=== PATIENT | female | born 1950 | race Asian ===

== ENCOUNTER 2021-06-08 16:52 | Emergency (ER) | payer BC, MEDICAID ==
[~2021-06-08] VITALS: Ht 157.5 cm; Wt 45.0 kg
[~2021-06-08 16:52] MED LIST: FURO-150 PO
[2021-06-08 18:22] LABS: BASOPHILS % (AUTO) 0.5 % (0-1); EOSINOPHILS # (AUTO) 0.2 X10'3 (0-0.9); EOSINOPHILS % (AUTO) 2.8 % (0-6); HEMATOCRIT 43.2 % (35.0-45.0); HEMOGLOBIN 14.6 g/dl (12.0-16.0); LYMPHOCYTES # (AUTO) 1.3 X10'3 (1.1-4.8); LYMPHOCYTES % (AUTO) 18.5 % (21-51); MEAN CORPUSCULAR HEMOGLOBIN 28.9 PG (27.0-31.0); MEAN CORPUSCULAR HGB CONC 33.7 g/dL (33.0-36.5); MEAN CORPUSCULAR VOLUME 85.6 FL (78-98); MEAN PLATELET VOLUME 8.1 FL (7.4-10.4); MONOCYTES # (AUTO) 0.6 X10'3 (0-0.9); MONOCYTES % (AUTO) 7.7 % (2-12); NEUTROPHILS # (AUTO) 5.1 X10'3 (1.8-7.7); NEUTROPHILS % (AUTO) 70.5 % (42-75); PLATELET COUNT 194 X10'3 (140-440); RED BLOOD COUNT 5.05 X10'6 (4.20-5.60); RED CELL DISTRIBUTION WIDTH 14.2 % (11.5-14.5); WHITE BLOOD COUNT 7.2 X10'3 (4.5-11.0)
[2021-06-08 18:40] LABS: ALANINE AMINOTRANSFERASE 17 U/L (12-78); ALBUMIN 3.6 G/DL (3.4-5.0); ALKALINE PHOSPHATASE 65 IU/L (46-116); ANION GAP 5 (8-16); ASPARTATE AMINO TRANSFERASE 13 U/L (10-37); BILIRUBIN,TOTAL 0.4 MG/DL (0.1-1.0); BLOOD UREA NITROGEN 14 MG/DL (7-18); BUN/CREATININE RATIO 15.6 (6.6-38.0); CALCIUM 8.8 MG/DL (8.5-10.1); CHLORIDE 109 MMOL/L (99-107); ETHANOL < 0.010 GM/DL (0.0-0.010); GLUCOSE 173 MG/DL (70-104); POTASSIUM 3.7 MMOL/L (3.5-5.1); SODIUM 144 MMOL/L (135-145); TOTAL CARBON DIOXIDE 29.8 MMOL/L (24-32); TOTAL PROTEIN 7.2 G/DL (6.4-8.2); eGFR 62 ML/MIN
--- NOTE | 2021-06-08 20:30 | NUR ---
I agree with the assessment and mental health charting assessments performed by Flakita VÁZQUEZ.
[2021-06-08 20:39] LABS: URINE AMPHETAMINE SCREEN NEGATIVE (Neg); URINE BARBITUATE SCREEN NEGATIVE (Neg); URINE BENZODIAZEPINES SCREEN NEGATIVE (Neg); URINE CANNABINOID SCREEN NEGATIVE (Neg); URINE COCAINE SCREEN NEGATIVE (Neg); URINE METHADONE SCREEN NEGATIVE (Neg); URINE OPIATE SCREEN NEGATIVE (Neg); URINE PHENCYCLIDINE SCREEN NEGATIVE (Neg)
[2021-06-08] MEDS ORDERED: GABA300C PO (21:15)
[2021-06-08] MEDS ORDERED: METF-436 PO ×2 (21:15)
[2021-06-08] MEDS ORDERED: SIMV-42 PO (21:29)
[2021-06-08] MEDS ORDERED: LOSA25TA41 PO (21:29)
--- NOTE | 2021-06-08 21:50 | NUR ---
1799 PACKET FAXED @21:52 TO [facility]
--- NOTE | 2021-06-08 23:39 | NUR ---
PT AMBULATED TO RESTROOM, RETURNED TO ROOM
--- NOTE | 2021-06-09 06:30 | NUR ---
FIRST CONTACT WITH PT, FOUND SITTING AT EDGE OF BED READING A BOOK. PT EXPLAINED THAT SHE DOES NOT WANT TO RETURN TO HER HOME. STATES HER "ROOMMATE MAKES HER DO ALL THE COOKING AND CLEANING" STATES SHE IS "TOO OLD TO BE TAKING CARE OF HIM" SHE DOES NOT HAVE ANTOHER PLACE TO GO IN TOWN. WILL PLACE SOCIAL SERIVES CONSULT. RR EVEN AND UNLABORED, NO DISTRESS.
[2021-06-09] MEDS: atorvastatin 10mg tablet PO SCH (08:40)
[2021-06-09] MEDS: metFORMIN 500mg tablet PO SCH ×2 (08:40→20:09)
[2021-06-09] MEDS: gabapentin 300mg capsule PO SCH ×2 (08:40→20:09)
[2021-06-09] MEDS: losartan 25mg tablet PO SCH (08:41)
--- NOTE | 2021-06-09 12:36 | NUR ---
[facility] is at bedside evaluating the patient.
--- NOTE | 2021-06-09 13:00 | NUR ---
[facility] will not place pt on a hold d/t severe cognitive decline. informed dr. delgadillo. pt will stay in ER and await placement.
--- NOTE | 2021-06-09 14:30 | NUR ---
pt is tearful in bed, kleenex provided. pt is thanking nursing staff for help, stating she had a therapist with her mother. pt informed that she will be staying in the hospital for the time being, verbalized understanding.
--- NOTE | 2021-06-09 18:22 | NUR ---
pt ambulated with steady gait to/from restroom.
--- NOTE | 2021-06-09 19:46 | NUR ---
The patient was moved to bed 21 in the main ER and she was very cooperative with the move. She is ambulating to and from the bathroom using a front wheel walker and she was able to do that independently. She was very pleasant during the one to one evening assessment. She ate 100% of her dinner. She was able to state why she is here and the circumstances surrounding coming to the ER. She was oriented to month and year. She denies physical complaints. She denied feeling depressed or suicidal in any way. She report that she felt anxious about being here.
--- NOTE | 2021-06-09 21:00 | NUR ---
The patient appear to be sleeping
--- NOTE | 2021-06-09 23:06 | NUR ---
The patient appears to be sleeping
--- NOTE | 2021-06-10 01:00 | NUR ---
The patient appears to be sleeping
--- NOTE | 2021-06-10 01:58 | NUR ---
The patient appears to be sleeping
--- NOTE | 2021-06-10 03:47 | NUR ---
The patient appears to be sleeping
--- NOTE | 2021-06-10 05:19 | NUR ---
The patient appeared to have slept well throughout the night
[2021-06-10] MEDS: gabapentin 300mg capsule PO SCH ×2 (08:32→20:27)
[2021-06-10] MEDS: atorvastatin 10mg tablet PO SCH (08:32)
[2021-06-10] MEDS: metFORMIN 500mg tablet PO SCH ×2 (08:33→20:27)
[2021-06-10] MEDS: losartan 25mg tablet PO SCH (08:34)
--- NOTE | 2021-06-10 11:24 | NUR ---
LOUISE RODRIGUEZ [phone] BOYFRIEND. WANTS TO COME PICK HER UP. TOLD LOUISE I WOULD FIND OUT AND GET BACK TO HIM.
--- NOTE | 2021-06-10 14:51 | NUR ---
LOUISE TAVAREZ BOYFRIEND ALSO ROOMMATE. PT DOES NOT WANT TO GO BACK THERE AND LIVE WITH HIM. BLANKET FOLDER WILL FIND PLACEMENT FOR PT.
--- NOTE | 2021-06-10 14:56 | NUR ---
SENT MESSAGE TO CONCESSIONIST FOR CONSULT.
--- NOTE | 2021-06-10 15:00 | NUR ---
PT AT NURSES STATION, TEARY EYED, CRYING. STATES, " I DONT WANT TO GO BACK HOME WITH HIM." WE REASSURE HER THAT IT WONT HAPPEN. HOGSHEAD HAND WILL PROBABLY COME TALK TO HER TOMORROW.
--- NOTE | 2021-06-10 19:05 | NUR ---
One to one with the patient. She was very pleasant when approached. She stated that she has been feeling very anxious. She stated that she also felt upset about a phone call she had with her roommates sister. She denies suicidal or thoughts to harm to others. There is no psychotic symptoms. She is oriented to day and date. She reports her appetite is good and she ate 100% of her dinner. She takes care of her ADLs independently.
--- NOTE | 2021-06-10 20:40 | NUR ---
The patient appears to be sleeping. She woke up briefly to take her HS medications but is now back asleep
--- NOTE | 2021-06-10 22:31 | NUR ---
The patient appears to be sleeping
--- NOTE | 2021-06-11 00:49 | NUR ---
The patient appears to be sleeping
--- NOTE | 2021-06-11 01:53 | NUR ---
The patient is up to use the bathroom. Ambulating with front wheel walker
--- NOTE | 2021-06-11 03:47 | NUR ---
The patient is awake and sitting quietly on the side of her bed
--- NOTE | 2021-06-11 04:56 | NUR ---
The patient is sitting on the side of her bed quietly
--- NOTE | 2021-06-11 05:54 | NUR ---
Accucheck was 99
--- NOTE | 2021-06-11 07:00 | NUR ---
Pt lying in mid nuñez's position, noted rise and fall of chest. Repirations even and unlabored.
[2021-06-11] MEDS: atorvastatin 10mg tablet PO SCH (08:04)
[2021-06-11] MEDS: gabapentin 300mg capsule PO SCH (08:04)
[2021-06-11] MEDS: losartan 25mg tablet PO SCH (08:04)
[2021-06-11] MEDS: metFORMIN 500mg tablet PO SCH (08:04)
--- NOTE | 2021-06-11 08:52 | NUR ---
PT WAS UP TO THE BATHROOM WITH HER HYGIENE ITEMS. PRESENTS A LITTLE CONFUSED, WASN'T AT FIRST ABLE TO RECALL WHERE SHE WAS. PT WAS ASSISTED BACK TO HER BED. PT DENIES PSYCHOTIC SYMPTOMS. PT ATE 100% OF HER BREAKFAST.
--- NOTE | 2021-06-11 09:43 | NUR ---
SS at bedside, conversation appropriate.
--- NOTE | 2021-06-11 10:30 | NUR ---
Spoke with Mark (pt's boyfriend). He will be able to pick pt up around 1200.
--- NOTE | 2021-06-11 11:03 | NUR ---
Pt sitting on side of bed waiting for her discharge.
--- NOTE | 2021-06-11 13:08 | NUR ---
DISCHARGE NOTE: Patient was discharged from unit at 1304. Pt was picked up by her boyfriend Mark. Pt left with all personal belongings. Pt has a hospital follow up at [facility] 07/05/21 @ 1410 with Gelacio Perales NP. [facility] services will contact patient regarding mental health follow up. Pt verbalized understanding.
[2021-06-11 13:09] VITALS: BP 133/78
== END 2021-06-11 13:03 | disposition home or self-care (01) ==
LOC: ER 16:53
DX: R45.851 Suicidal ideations (principal); Z20.822 Contact with and (suspected) exposure to COVID-19; F32.A Depression, unspecified; E78.00 Pure hypercholesterolemia, unspecified; I10 Essential (primary) hypertension; E11.9 Type 2 diabetes mellitus without complications; Z98.890 Other specified postprocedural states; Z88.8 Allergy status to other drugs, medicaments and biological substances; Z79.899 Other long term (current) drug therapy
CPT/HCPCS: 36415; 80053; 80305; 80320; 82948; 85025; 87635; 99285; C9803

== ENCOUNTER 2021-08-11 08:31 | Emergency (ER) | payer BC, MEDICAID ==
[~2021-08-11] VITALS: Ht 157.5 cm; Wt 47.3 kg
[~2021-08-11 08:31] MED LIST changes: +ATOR10TA PO; +BUSP5TAB26 PO; +DULO30CA52 PO; -FURO-150 PO; +GABA300C PO; +LOSA25TA41 PO; +METF-1203 PO; +TRAZ-251 PO
[2021-08-11 09:06] VITALS: BP 135/72
== END 2021-08-11 12:54 | disposition home or self-care (01) ==
LOC: ER 08:31
DX: R53.1 Weakness (principal); E78.00 Pure hypercholesterolemia, unspecified; I10 Essential (primary) hypertension; E11.9 Type 2 diabetes mellitus without complications; F41.9 Anxiety disorder, unspecified; F32.A Depression, unspecified; Z88.8 Allergy status to other drugs, medicaments and biological substances; Z79.899 Other long term (current) drug therapy; W18.30XA Fall on same level, unspecified, initial encounter; Y93.89 Activity, other specified; Y92.89 Other specified places as the place of occurrence of the external cause; Y99.8 Other external cause status
CPT/HCPCS: 93005; 99283

== ENCOUNTER 2021-09-29 10:01 | Emergency (ER) | payer BC, MEDICAID ==
[~2021-09-29] VITALS: Ht 157.5 cm; Wt 63.6 kg
[2021-09-29 10:38] VITALS: BP 140/80
== END 2021-09-29 14:59 | disposition left against medical advice (07) ==
LOC: ER 10:02
DX: K92.1 Melena (principal); Z53.21 Procedure and treatment not carried out due to patient leaving prior to being seen by health care provider

== ENCOUNTER 2021-10-18 14:28 | Emergency (ER) | payer BC, MEDICAID ==
[~2021-10-18] VITALS: Ht 157.5 cm; Wt 63.0 kg
[2021-10-18 14:59] VITALS: BP 175/85
== END 2021-10-18 16:56 | disposition home or self-care (01) ==
LOC: ER 14:29
DX: Z13.89 Encounter for screening for other disorder (principal); I10 Essential (primary) hypertension; E78.00 Pure hypercholesterolemia, unspecified; E11.9 Type 2 diabetes mellitus without complications; F41.9 Anxiety disorder, unspecified; F32.9 Major depressive disorder, single episode, unspecified; Z88.8 Allergy status to other drugs, medicaments and biological substances; Z79.899 Other long term (current) drug therapy
CPT/HCPCS: 99283

== ENCOUNTER 2021-11-28 17:40 | Inpatient (IN) | payer BC, MEDICAID ==
[~2021-11-28] VITALS: Ht 157.5 cm; Wt 55.9 kg
[2021-11-28 18:51] LABS: BASOPHILS # (AUTO) 0.1 X10'3 (0-0.2); BASOPHILS % (AUTO) 1.7 % (0-1); EOSINOPHILS # (AUTO) 0.2 X10'3 (0-0.9); HEMATOCRIT 41.6 % (35.0-45.0); HEMOGLOBIN 13.5 g/dl (12.0-16.0); LYMPHOCYTES # (AUTO) 1.6 X10'3 (1.1-4.8); LYMPHOCYTES % (AUTO) 22.9 % (21-51); MEAN CORPUSCULAR HEMOGLOBIN 28.6 PG (27.0-31.0); MEAN CORPUSCULAR HGB CONC 32.4 g/dL (33.0-36.5); MEAN CORPUSCULAR VOLUME 88.3 FL (78-98); MEAN PLATELET VOLUME 7.8 FL (7.4-10.4); MONOCYTES # (AUTO) 0.7 X10'3 (0-0.9); MONOCYTES % (AUTO) 9.6 % (2-12); NEUTROPHILS # (AUTO) 4.4 X10'3 (1.8-7.7); NEUTROPHILS % (AUTO) 62.8 % (42-75); PLATELET COUNT 224 X10'3 (140-440); RED BLOOD COUNT 4.71 X10'6 (4.20-5.60); RED CELL DISTRIBUTION WIDTH 14.3 % (11.5-14.5)
[2021-11-28 19:18] LABS: ALANINE AMINOTRANSFERASE 31 U/L (12-78); ALBUMIN 3.6 G/DL (3.4-5.0); ALBUMIN/GLOBULIN RATIO 1.1 (1.1-1.5); ALKALINE PHOSPHATASE 70 IU/L (46-116); ANION GAP 8 (8-16); ASPARTATE AMINO TRANSFERASE 26 U/L (10-37); BILIRUBIN,TOTAL 0.3 MG/DL (0.1-1.0); BLOOD UREA NITROGEN 16 MG/DL (7-18); BUN/CREATININE RATIO 22.5 (6.6-38.0); CHLORIDE 105 MMOL/L (99-107); CREATININE 0.71 MG/DL (0.40-0.90); GLUCOSE 87 MG/DL (70-104); SODIUM 142 MMOL/L (135-145); TOTAL CARBON DIOXIDE 28.8 MMOL/L (24-32); TOTAL PROTEIN 6.9 G/DL (6.4-8.2); eGFR 82 ML/MIN
[2021-11-28 19:22] LABS: ETHANOL < 0.010 GM/DL (0.0-0.010)
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
[2021-11-28] MEDS ORDERED: PALI117D IM (21:24)
[2021-11-28] MEDS ORDERED: TRIH2TAB3 PO (21:24)
[2021-11-28] MEDS ORDERED: BUSP10TA11 PO (21:24)
[2021-11-28] MEDS ORDERED: TRAZ-256 PO (21:24)
[2021-11-28] MEDS ORDERED: invega sustenna IM (21:24)
[2021-11-28] MEDS ORDERED: DULO-31 PO (21:24)
[2021-11-28] MEDS ORDERED: METF-438 PO (21:24)
[2021-11-28] MEDS ORDERED: PALI6TAB PO (21:24)
[2021-11-28] MEDS ORDERED: LOSA25TA96 PO (21:29)
[2021-11-28] MEDS ORDERED: BREX2TAB PO (21:29)
[2021-11-28 21:32] LABS: CLARITY,URINE CLEAR (Clear); COLOR,URINE YELLOW (Yellow); GLUCOSE, URINE NEGATIVE (Neg); KETONES,URINE NEGATIVE (Neg); LEUKOCYTE ESTERASE ,URINE NEGATIVE (Neg); NITRITES, URINE NEGATIVE (Neg); OCCULT BLOOD,URINE NEGATIVE (Neg); PROTEIN,URINE NEGATIVE (Neg); UROBILINOGEN,URINE 0.2 E.U/dL (0.2-1.0)
[2021-11-28 21:33] LABS: UA COLLECTION TYPE FOLEY CATH
--- NOTE | 2021-11-28 21:35 | NUR ---
The patient is currently resting comfortably on her bed. She is confused and a poor historian but has been very cooperative with staff and CT scan.
[2021-11-28 21:40] LABS: URINE AMPHETAMINE SCREEN NEGATIVE (Neg); URINE BARBITUATE SCREEN NEGATIVE (Neg); URINE BENZODIAZEPINES SCREEN NEGATIVE (Neg); URINE CANNABINOID SCREEN NEGATIVE (Neg); URINE COCAINE SCREEN NEGATIVE (Neg); URINE METHADONE SCREEN NEGATIVE (Neg); URINE OPIATE SCREEN NEGATIVE (Neg); URINE PHENCYCLIDINE SCREEN NEGATIVE (Neg)
--- NOTE | 2021-11-28 22:20 | NUR ---
PACKET SENT TO [facility]
--- NOTE | 2021-11-28 23:36 | NUR ---
The patient appears to be sleeping
--- NOTE | 2021-11-29 01:59 | NUR ---
The patient up to use the bedside commode and was incontinent of loose stool.
--- NOTE | 2021-11-29 02:59 | NUR ---
The patient appears to be sleeping
--- NOTE | 2021-11-29 05:00 | NUR ---
The patient is awake and tearful. Stated she has been feeling depressed. Presents as somewhat confused about what was going on with her medications or where they were at. She was assured that her medications will be reordered for while she is here in the hospital.
--- NOTE | 2021-11-29 06:01 | NUR ---
The patient has had two liquid stools and Dr. Gan was made aware.
[2021-11-29] MEDS ORDERED: loperamide 2mg capsule PO PRN (06:05)
--- NOTE | 2021-11-29 07:00 | NUR ---
Received Pt in bed sleeping w/o distress at this time.
--- NOTE | 2021-11-29 09:05 | NUR ---
Pt woke and cooperative and pleasant with staff. Pt ate 100% of breakfast and used bedside comode with transfer assist.
[2021-11-29] MEDS: busPIRone 5mg tablet PO SCH ×2 (09:15→20:08)
[2021-11-29] MEDS: duloxetine 30mg CAPSULE.DR PO SCH (09:15)
[2021-11-29] MEDS: trihexyphenidyl 2mg tablet PO SCH ×2 (09:15→20:17)
[2021-11-29] MEDS: losartan 25mg tablet PO SCH (09:16)
--- NOTE | 2021-11-29 10:30 | NUR ---
Pt took AM meds w/o issue and is in bed awake and intermitently closing her eyes.
--- NOTE | 2021-11-29 11:35 | NUR ---
Giving break to primary RN at this time.
--- NOTE | 2021-11-29 12:45 | NUR ---
Pt up to comode again with pivot assist. Pt had diarhea and urinated. Pt cleaned and new aubrey placed. Pt remains grateful and pleasant. Spoke with [facility] charge who inquired about incontinence, and mobility. Pt has not been incontinent on this shift. Pt ate lunch well.
--- NOTE | 2021-11-29 14:30 | NUR ---
Pt in bed resting quietly with no complaints or requests at this time. Pt sat on edge of bed for a while.
--- NOTE | 2021-11-29 16:30 | NUR ---
Pt sat on edge af bed and was able to stand and sit on comode by herself to urinate and returned to bed by self.
--- NOTE | 2021-11-29 18:14 | NUR ---
Pt sitting at edge of bed and returned phone to staff. Pt smiled and remains pleasant.
--- NOTE | 2021-11-29 19:00 | NUR ---
One to one with the patient who is pleasant but slightly confused. She keeps thinking that she will have to walk home and she was assured that she will be staying with us for tonight. She did say that she is periodically having visual hallucinations. She also reports that she continues to be depressed and have suicidal thoughts. She is getting up to the bedside commode independently.
[2021-11-29] MEDS: traZODone 50mg tablet PO SCH (20:08)
[2021-11-29] MEDS: metFORMIN 500mg tablet PO SCH (20:08)
--- NOTE | 2021-11-29 20:47 | NUR ---
The patient is resting on her bed. She was reminded of plan of care.
[2021-11-29] MEDS ORDERED: paliperidone 1.5mg ER tablet PO SCH (21:00)
--- NOTE | 2021-11-29 23:45 | NUR ---
The patient appears to be sleeping
--- NOTE | 2021-11-30 01:07 | NUR ---
The patient appears to be sleeping
--- NOTE | 2021-11-30 02:20 | NUR ---
The patient up to use the bedside commode but was incontinent and she had taken the bucket out for an unknown reason. She did not know where she was at or why she was here. She asked if she was in [place].
--- NOTE | 2021-11-30 02:48 | NUR ---
The patient appears to be sleeping
--- NOTE | 2021-11-30 03:52 | NUR ---
The patient appears to be sleeping
--- NOTE | 2021-11-30 05:09 | NUR ---
The patient appears to be sleeping at this time
--- NOTE | 2021-11-30 05:56 | NUR ---
pt refused vitals
--- NOTE | 2021-11-30 06:05 | NUR ---
The patient crawling on the floor and when asked why she stated that she was trying to get to the kitchen. She had no idea that she was in the hospital and she was re-oriented to time and place and was assisted back to bed. She was able to ambulate making very short steps with two staff assisting her.
--- NOTE | 2021-11-30 06:45 | NUR ---
Patient recieved awake sitting at the edge of the bed. No s/sx acute distress.
[2021-11-30] MEDS: trihexyphenidyl 2mg tablet PO SCH ×2 (08:31→19:38)
[2021-11-30] MEDS: duloxetine 30mg CAPSULE.DR PO SCH (08:31)
[2021-11-30] MEDS: busPIRone 5mg tablet PO SCH ×2 (08:31→19:38)
[2021-11-30] MEDS: losartan 25mg tablet PO SCH (08:32)
--- NOTE | 2021-11-30 10:24 | NUR ---
Patient resting quietly in bed. Appears to be sleeping off and on.
--- NOTE | 2021-11-30 13:47 | NUR ---
Pt stated she likes to do crossword puzzles, provided pt with a crossword puzzle.
--- NOTE | 2021-11-30 14:32 | NUR ---
Patient is sitting in bed working on a crossword puzzle. No s/sx acute distress.
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
[2021-11-30] MEDS: traZODone 50mg tablet PO SCH (19:37)
[2021-11-30] MEDS: metFORMIN 500mg tablet PO SCH (19:37)
[2021-11-30] MEDS: PALIPERIDONE 3 MG TAB.ER.24 PO SCH (19:38)
--- NOTE | 2021-11-30 20:00 | NUR ---
Pt is sitting up in bed eating her dinner. Pt is pleasantly confused, requesting when she will get her medications. Pt is questioning each pill but takes them without any issue. Pt up to bathroom with minimal assistance.
--- NOTE | 2021-11-30 23:05 | NUR ---
Pt up to the restroom X2, ambulates well with FWW. Pt back to bed and resting comfortably.
--- NOTE | 2021-12-01 02:34 | NUR ---
Pt appears to be sleeping.
--- NOTE | 2021-12-01 05:07 | NUR ---
Pt appears to be sleeping.
--- NOTE | 2021-12-01 06:30 | NUR ---
Pt is lying in bed on her back, she appears to be sleeping.
[2021-12-01] MEDS: busPIRone 5mg tablet PO SCH ×2 (08:14→20:44)
[2021-12-01] MEDS: duloxetine 30mg CAPSULE.DR PO SCH (08:15)
[2021-12-01] MEDS: trihexyphenidyl 2mg tablet PO SCH ×2 (08:15→20:00)
[2021-12-01] MEDS: losartan 25mg tablet PO SCH (08:15)
--- NOTE | 2021-12-01 08:30 | NUR ---
Pt changed from hospital gown to green scrubs. Pt wears pull-up briefs. Pt has been ambulating to the bathroom using FWW without staff assistance.
--- NOTE | 2021-12-01 10:13 | NUR ---
Pt requested to use the phone and called
--- NOTE | 2021-12-01 10:45 | NUR ---
Pt ambulated to the bathroom. Pt is able to manage her own pull-up briefs.
--- NOTE | 2021-12-01 12:00 | NUR ---
Pt is watching a movie.
--- NOTE | 2021-12-01 13:30 | NUR ---
Alison gas charger nurse from [facility] came down to interview the patient, they are considering placement upstairs.
--- NOTE | 2021-12-01 14:33 | NUR ---
Pt has been accepted at [facility].
--- NOTE | 2021-12-01 16:31 | NUR ---
Pt was transferred upstairs to [facility], she was taken up in a w/c accompanied by PCT and security.
--- NOTE | 2021-12-01 16:35 | NUR ---
Admit Note: Pt brought to ED via EMS for GD. Pt was not caring for self or eating per a roommate. Pt's belongings inventoried and put in locker. Pt showered then ate dinner. Addendum: 12/01/21 at 1826 by Tana Aponte RN Pt. scores as a high risk on the [place] Suicide Risk Assessment, however she is able to contract for safety on the unit. This was endorsed to US[facility] Zamora and Girish 15min safety checks were ordered.
[2021-12-01 16:40] VITALS: BP 146/84
[2021-12-01] MEDS ORDERED: loperamide 2mg capsule PO PRN (17:30)
[2021-12-01] MEDS ORDERED: mag hydrox/Alum hydrox/simeth 30ml oral suspension PO PRN (17:30)
[2021-12-01] MEDS ORDERED: acetaminophen 325mg tablet PO PRN ×2 (17:30)
[2021-12-01] MEDS ORDERED: magnesium hydroxide 30ml (MOM) UD suspension PO PRN (17:30)
[2021-12-01 19:00] VITALS: BP 109/55
[2021-12-01 19:51] VITALS: BP 109/55
[2021-12-01] MEDS: traZODone 50mg tablet PO SCH (20:44)
[2021-12-01] MEDS: PALIPERIDONE 3 MG TAB.ER.24 PO SCH (20:44)
[2021-12-01] MEDS: metFORMIN 500mg tablet PO SCH (20:45)
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
[2021-12-02 07:37] LABS: CHOL/HDL RATIO 2.8 (0.00-4.99); CHOLESTEROL 191 MG/DL (0-200); HDL CHOLESTEROL 69 MG/DL (35-60); LDL CHOLESTEROL 98 MG/DL (50-100); TRIGLYCERIDES 128 MG/DL (20-135)
[2021-12-02 08:00] VITALS: BP 122/63
[2021-12-02] MEDS: trihexyphenidyl 2mg tablet PO SCH ×2 (08:48→20:17)
[2021-12-02] MEDS: busPIRone 5mg tablet PO SCH ×2 (08:49→20:17)
[2021-12-02] MEDS: duloxetine 30mg CAPSULE.DR PO SCH (08:49)
[2021-12-02] MEDS: losartan 25mg tablet PO SCH (08:50)
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
[2021-12-02 19:30] VITALS: BP 130/56
[2021-12-02] MEDS: metFORMIN 500mg tablet PO SCH (20:17)
[2021-12-02] MEDS: PALIPERIDONE 3 MG TAB.ER.24 PO SCH (20:17)
[2021-12-02] MEDS: traZODone 50mg tablet PO SCH (20:17)
--- NOTE | 2021-12-03 05:07 | NUR ---
Nursing Progress Note Problem: Pt brought to ED via EMS for GD. Pt was not caring for self or eating per a roommate. Pt's belongings inventoried and put in locker. Interventions: Maintained a safe and supportive environment, ensured contract for safety, provided clear and simple instructions, maintained fall precautions, monitored behavior and provided redirection as needed, and maintained Q 15min safety checks. Response: Patient is pleasant and cooperative with care; compliant with medication. She denies SI, HI, A/VH; no apparent delusions expressed. Continues to appear depressed. She was social with peers and participated in HS snack in the community room. Patient was assisted to the restroom prior to bed; she expressed that she struggles with urgency. While in the restroom, patient reported stinging and bleeding when she wipes; some vaginal bleeding was noted. Brief was put on prior to bed; she is observed sleeping and continues to wake up frequently. Plan: Pt. requires a safe and supportive environment, medication titration until effective dose, needs to be monitored for crisis stabilization, and a viable plan for food, water & residential for discharge.
[2021-12-03 08:00] VITALS: BP 124/74
[2021-12-03] MEDS ORDERED: INVEGA SUSTENNA 117 MG IM SCH (08:00)
[2021-12-03] MEDS: busPIRone 5mg tablet PO SCH ×2 (08:17→21:11)
[2021-12-03] MEDS: losartan 25mg tablet PO SCH (08:18)
[2021-12-03] MEDS: trihexyphenidyl 2mg tablet PO SCH ×2 (08:18→21:11)
[2021-12-03] MEDS: duloxetine 30mg CAPSULE.DR PO SCH (08:18)
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
--- NOTE | 2021-12-03 15:52 | NUR ---
Therapeutic Group, Note Client attended 2 p.m. therapeutic group. Group method: group talk regarding healthy communication based on Cydneyan method -- no criticism, contempt, defensiveness, stonewalling, but stressing need to keep self and others safe (for example, it's okay not to talk or engage with someone when it's not safe). Acknowledged the uniqueness of this environment, and processing at length may or may not be necessary (chose communication based on setting, culture, need, relationship, etc.) Client stayed for the duration of group time, and interacted well and appropriately with peers.
[2021-12-03 20:21] VITALS: BP 113/59
[2021-12-03] MEDS: metFORMIN 500mg tablet PO SCH (21:10)
[2021-12-03] MEDS: PALIPERIDONE 3 MG TAB.ER.24 PO SCH (21:11)
[2021-12-03] MEDS: traZODone 50mg tablet PO SCH (21:11)
--- NOTE | 2021-12-04 02:08 | NUR ---
Nursing Progress Note: Problem : Pt brought to ED via EMS for GD. Pt was not caring for self or eating per a roommate. Pt's belongings inventoried and put in locker. Interventions : Maintained a safe and supportive environment, ensured contract for safety, provided clear and simple instructions, provided active listening and positive encouragement, encouraged participation on the unit, maintained fall precautions, and maintained Q 15min safety checks. Response : Pt pleasant and cooperative. Her conversation can be repetitive at times. She perseverated on her roommate and if he was going to allow her to come home. Pt chastity and laughs easily. Pt concerned about being incontinent supplied with depends and encouraged to ask for assistance if needed. She socialized with other pts in the group room before going to bed. Plan : Pt. continues to require interruption of current crisis, medication adjustments, and a safe and supportive environment.
[2021-12-04 08:00] VITALS: BP 120/63
[2021-12-04] MEDS ORDERED: paliperidone palmitate inj 234 MG/1.5 ML SYRINGE IM ONE (08:00)
[2021-12-04] MEDS: duloxetine 30mg CAPSULE.DR PO SCH (08:18)
[2021-12-04] MEDS: trihexyphenidyl 2mg tablet PO SCH ×2 (08:18→19:56)
[2021-12-04] MEDS: aspirin 81mg tab.chew PO SCH (08:18)
[2021-12-04] MEDS: losartan 25mg tablet PO SCH (08:19)
[2021-12-04] MEDS: lisinopril 10 MG tablet PO SCH (08:19)
[2021-12-04] MEDS: busPIRone 5mg tablet PO SCH ×2 (08:20→19:56)
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
[2021-12-04 19:30] VITALS: BP 110/57
[2021-12-04] MEDS: PALIPERIDONE 3 MG TAB.ER.24 PO SCH (19:55)
[2021-12-04] MEDS: metFORMIN 500mg tablet PO SCH (19:56)
[2021-12-04] MEDS: traZODone 50mg tablet PO SCH (19:56)
--- NOTE | 2021-12-05 00:05 | NUR ---
Nursing Progress Note: Problem : The patient was seen in her home by staff from [facility] and a 5150 was written for grave disability. The patient was found sitting soiled in a chair and unable to get up or walk. The house was almost to the point of being uninhabitable. There was trash and feces on the floor of the home and she could not tell mental health staff if she had been taking her medications. Interventions: One to one with the patient to assess orientation. She was assessed for thought disorder and what her plans were if she were to leave the hospital. She was also assessed for self harm risk and severity of depressive symptoms. Response: The patient was seen in the patient dining room where she was observed sleeping in her chair. She was very pleasant and cooperative with the evening assessment. She was able to state the date and place but had more difficulty stating why she was here. She often would give a reply then immediately began talking about totally unrelated topics. She denies that she has thoughts to harm herself or others. When asked if she felt depressed she stated no but then immediately added, "A little bit" Plan: Continue plan of care. Discharge planning to include a safe discharge plan.
--- NOTE | 2021-12-05 07:37 | NUR ---
Initial: Pt admitted w/ schizophrenia per EMR. Currently on Carb control diet w/ mostly 100% intake of meals meeting est needs. LBM 12/04. No nutrition intervention implemented at this time, will continue to monitor. Recs; 1. Continue Carb control diet as tolerated 2. Bowel care PRN 3. Weekly wts Addendum: 12/05/21 at [address] Amended: Links added.
[2021-12-05 08:00] VITALS: BP 124/67
[2021-12-05] MEDS: aspirin 81mg tab.chew PO SCH (08:06)
[2021-12-05] MEDS: lisinopril 10 MG tablet PO SCH (08:06)
[2021-12-05] MEDS: trihexyphenidyl 2mg tablet PO SCH ×2 (08:06→20:56)
[2021-12-05] MEDS: duloxetine 30mg CAPSULE.DR PO SCH (08:06)
[2021-12-05] MEDS: losartan 25mg tablet PO SCH (08:07)
[2021-12-05] MEDS: busPIRone 5mg tablet PO SCH ×2 (08:07→20:56)
--- NOTE | 2021-12-05 16:25 | NUR ---
Nursing Progress Note: Marcelle Problem: Pt brought to ED via EMS for GD currently has [address] Interventions: Maintained a safe and supportive environment, ensured contract for safety, provided clear and simple instructions, provided active listening and positive encouragement, encouraged participation on the unit, maintained fall precautions, and maintained Q 15min safety checks. Response: Received patient sleeping and woke to attend breakfast. Pt. took her medications without hesitancy. She denies SI, HI and A/VH her DC plan remains to go to a board and care Pt. is disheveled, with poor hygiene, and wearing a stained dress. Shew was encouraged to take a shower, but reports I have eczema and showers bother my skin, I took a bed bath Pt. observed walking around the unit using her 4WW, and socializing with cohorts. Pt. ate all her meals in the dining room and participated in snacks. She is pleasant during interactions, but presents as confused as to why she is here. Plan: Pt. continues interruption of current crisis, medication adjustments, and a safe and supportive environment.
[2021-12-05 19:38] VITALS: BP 93/51
[2021-12-05] MEDS: metFORMIN 500mg tablet PO SCH (20:56)
[2021-12-05] MEDS: traZODone 50mg tablet PO SCH (20:56)
[2021-12-05] MEDS: PALIPERIDONE 3 MG TAB.ER.24 PO SCH (20:56)
--- NOTE | 2021-12-06 05:01 | NUR ---
Nursing Progress Note Problem: Pt brought to ED via EMS for GD. Pt was not caring for self or eating per a roommate. Pt's belongings inventoried and put in locker. Interventions: Maintained a safe and supportive environment, ensured contract for safety, provided clear and simple instructions, maintained fall precautions, monitored behavior and provided redirection as needed, and maintained Q 15min safety checks. Response: Patient is pleasant and cooperative with care; compliant with medication. She denies SI, HI, A/VH; no apparent delusions expressed. Patient was mostly isolative to her room this shift. Patient was incontinent of urine x1 this shift as she struggles with urgency. She did not participate in HS snack; observed sleeping and does not appear to be having difficulty. Plan: Pt. requires a safe and supportive environment, medication titration until effective dose, needs to be monitored for crisis stabilization, and a viable plan for food, water & nursing home for discharge.
[2021-12-06 07:42] VITALS: BP 113/67
[2021-12-06] MEDS: trihexyphenidyl 2mg tablet PO SCH ×2 (08:07→20:51)
[2021-12-06] MEDS: busPIRone 5mg tablet PO SCH ×2 (08:07→20:51)
[2021-12-06] MEDS: aspirin 81mg tab.chew PO SCH (08:07)
[2021-12-06] MEDS: lisinopril 10 MG tablet PO SCH (08:07)
[2021-12-06] MEDS: duloxetine 30mg CAPSULE.DR PO SCH (08:07)
[2021-12-06] MEDS: losartan 25mg tablet PO SCH (08:08)
[2021-12-06 09:13] LABS: CLARITY,URINE SLIGHTLY CLOUDY (Clear); COLOR,URINE YELLOW (Yellow); GLUCOSE, URINE NEGATIVE (Neg); KETONES,URINE NEGATIVE (Neg); LEUKOCYTE ESTERASE ,URINE SMALL (Neg); NITRITES, URINE NEGATIVE (Neg); OCCULT BLOOD,URINE LARGE (Neg); PH,URINE 5.5 (4.8-8.0); PROTEIN,URINE NEGATIVE (Neg); UROBILINOGEN,URINE 0.2 E.U/dL (0.2-1.0)
[2021-12-06 09:21] LABS: UA COLLECTION TYPE NON-SPECIFIED
[2021-12-06 09:56] LABS: RBC,URINE 50-100 /HPF (0-2); WBC,URINE 50-100 /HPF (0-4)
[2021-12-06 09:57] LABS: BACTERIA,URINE 3+ /HPF (Neg); MUCUS STRANDS NONE SEEN /LPF (Neg); SQUAMOUS EPITHELIAL CELL,UR FEW /LPF (FEW); TRANSITIONAL EPI CELLS,URINE FEW /HPF; WBC CLUMPS,URINE MODERATE /HPF (NEGATIVE)
--- NOTE | 2021-12-06 11:01 | NUR ---
Met with Marcelle to discuss discharge plan. She would like to return home upon discharge. Offered to refer to [facility] per USAMA Morrissey, request, and she declined. JARET Tabares
--- NOTE | 2021-12-06 13:42 | NUR ---
Left message for APS requesting a call back to see if there is any involvement. JARET Tabares
--- NOTE | 2021-12-06 16:41 | NUR ---
Nursing Progress Note: Marcelle Problem: Pt brought to ED via EMS for GD currently has [address] Interventions: Maintained a safe and supportive environment, ensured contract for safety, provided clear and simple instructions, provided active listening and positive encouragement, encouraged participation on the unit, maintained fall precautions, and maintained Q 15min safety checks. Response: Received patient sleeping and woke to attend breakfast. Pt. reported dysuria and a UA was obtained and sent to the lab; results thus far elevated WBC with REAL ESTATE SALES AGENT pending. She continues to have vaginal bleeding but she reports its just a little she took her medications without hesitancy. She denies SI, HI and A/VH her DC plan remains to go to a board and care Pt. took a shower and is wearing street clothes. Pt. observed walking around the unit using her 4WW, and socializing with cohorts. Pt. ate all her meals in the dining room and participated in snacks. She is pleasant during interactions. REAL ESTATE SALES AGENT pending Plan: Pt. continues interruption of current crisis, medication adjustments, and a safe and supportive environment.
[2021-12-06 19:30] VITALS: BP 104/56
[2021-12-06] MEDS: metFORMIN 500mg tablet PO SCH (20:51)
[2021-12-06] MEDS: traZODone 50mg tablet PO SCH (20:52)
[2021-12-06] MEDS: PALIPERIDONE 3 MG TAB.ER.24 PO SCH (20:53)
--- NOTE | 2021-12-07 05:22 | NUR ---
Nursing Progress Note Problem: Pt brought to ED via EMS for GD. Pt was not caring for self or eating per a roommate. Pt's belongings inventoried and put in locker. Interventions: Maintained a safe and supportive environment, ensured contract for safety, provided clear and simple instructions, maintained fall precautions, monitored behavior and provided redirection as needed, and maintained Q 15min safety checks. Response: Pleasant and cooperative with care; compliant with medication. Patient denies SI, HI, A/VH; endorses depression. She remained isolated to her room this shift. Patient struggles with urgency and requires assistance with cleaning up periodically. Patient did not participate in HS snack; observed sleeping and does not appear to be having difficulty. Plan: Pt. requires a safe and supportive environment, medication titration until effective dose, needs to be monitored for crisis stabilization, and a viable plan for food, water & [facility] for discharge.
--- NOTE | 2021-12-07 07:34 | NUR ---
Received confirmation that APS did go out to Marcelle's house and offered services/referrals. JARET Tabares
[2021-12-07] MEDS: trihexyphenidyl 2mg tablet PO SCH ×2 (07:53→20:32)
[2021-12-07] MEDS: aspirin 81mg tab.chew PO SCH (07:54)
[2021-12-07] MEDS: losartan 25mg tablet PO SCH (07:54)
[2021-12-07] MEDS: duloxetine 30mg CAPSULE.DR PO SCH (07:54)
[2021-12-07] MEDS: busPIRone 5mg tablet PO SCH ×2 (07:54→20:33)
[2021-12-07] MEDS: lisinopril 10 MG tablet PO SCH (07:54)
[2021-12-07 09:25] VITALS: BP 125/62
--- NOTE | 2021-12-07 16:55 | NUR ---
Nursing Progress Note: Marcelle Problem: Pt brought to ED via EMS for GD currently has [address] Interventions: Maintained a safe and supportive environment, ensured contract for safety, provided clear and simple instructions, provided active listening and positive encouragement, encouraged participation on the unit, maintained fall precautions, and maintained Q 15min safety checks. Response: Pt ambulates around the unit with her walker. Pt spends some time in the community room wathcing TV. Plan: Pt. continues interruption of current crisis, medication adjustments, and a safe and supportive environment.
[2021-12-07 19:00] VITALS: BP 92/50
[2021-12-07] MEDS: PALIPERIDONE 3 MG TAB.ER.24 PO SCH (20:32)
[2021-12-07] MEDS: traZODone 50mg tablet PO SCH (20:32)
[2021-12-07] MEDS: metFORMIN 500mg tablet PO SCH (20:33)
--- NOTE | 2021-12-08 05:04 | NUR ---
Nursing Progress Note Problem: Pt brought to ED via EMS for GD. Pt was not caring for self or eating per a roommate. Pt's belongings inventoried and put in locker. Interventions: Maintained a safe and supportive environment, ensured contract for safety, provided clear and simple instructions, maintained fall precautions, monitored behavior and provided redirection as needed, and maintained Q 15min safety checks. Response: Patient is pleasant and cooperative with care; compliant with medication. She denies SI, HI, A/VH; no apparent delusions expressed. She was mostly isolative to her room but participated in HS snack; observed sleeping with no apparent difficulties. Invega injection is in [facility]. Plan: Pt. requires a safe and supportive environment, medication titration until effective dose, needs to be monitored for crisis stabilization, and a viable plan for food, water & prison for discharge.
[2021-12-08 08:00] VITALS: BP 141/70
[2021-12-08] MEDS: aspirin 81mg tab.chew PO SCH (08:00)
[2021-12-08] MEDS: duloxetine 30mg CAPSULE.DR PO SCH (08:03)
[2021-12-08] MEDS: busPIRone 5mg tablet PO SCH ×2 (08:03→20:17)
[2021-12-08] MEDS: lisinopril 10 MG tablet PO SCH (08:03)
[2021-12-08] MEDS: trihexyphenidyl 2mg tablet PO SCH ×2 (08:03→20:17)
[2021-12-08] MEDS: losartan 25mg tablet PO SCH (08:04)
[2021-12-08] MEDS ORDERED: paliperidone palmitate 156 mg/ml inj.**IM only IM ONE (10:00)
[2021-12-08] MEDS: levoFLOXACIN 750MG TABLET PO SCH (12:02)
--- NOTE | 2021-12-08 15:28 | NUR ---
Nursing Progress Note Problem: Pt brought to ED via EMS for GD. Pt was not caring for self or eating per a roommate. Interventions: Maintained a safe and supportive environment, ensured contract for safety, provided clear and simple instructions, maintained fall precautions, monitored behavior and provided redirection as needed, and maintained Q 15min safety checks. Response: Patient received resting quietly in bed. Pleasant and cooperative with assessment and medications. Invega sustenna is given as ordered and tolerated well. Patient gait appears steady with FWW. Denies any mental health symptoms at this time. Patient spends time in the community room watching TV. Noted walking in the hallway for short periods of time. Plan: Pt. requires a safe and supportive environment, medication titration until effective dose, needs to be monitored for crisis stabilization, and a viable plan for food, water & [facility] for discharge.
[2021-12-08 19:22] VITALS: BP 108/50
[2021-12-08] MEDS: traZODone 50mg tablet PO SCH (20:16)
[2021-12-08] MEDS: metFORMIN 500mg tablet PO SCH (20:16)
[2021-12-08] MEDS: PALIPERIDONE 3 MG TAB.ER.24 PO SCH (20:16)
--- NOTE | 2021-12-09 05:30 | NUR ---
Nursing Progress Note Problem: Pt brought to ED via EMS for GD. Pt was not caring for self or eating per a roommate. Pt's belongings inventoried and put in locker. Interventions: Maintained a safe and supportive environment, ensured contract for safety, provided clear and simple instructions, maintained fall precautions, monitored behavior and provided redirection as needed, and maintained Q 15min safety checks. Response: Patient is pleasant and cooperative with care; compliant with medication. She denies SI, HI, A/VH; no apparent delusions expressed. She was briefly out on the unit at the beginning of shift but retired to bed early; observed sleeping and does not appear to be having difficulty. Plan: Pt. requires a safe and supportive environment, medication titration until effective dose, needs to be monitored for crisis stabilization, and a viable plan for food, water & prison for discharge.
[2021-12-09] MEDS: aspirin 81mg tab.chew PO SCH (07:49)
[2021-12-09] MEDS: trihexyphenidyl 2mg tablet PO SCH ×2 (07:49→20:40)
[2021-12-09] MEDS: losartan 25mg tablet PO SCH (07:50)
[2021-12-09] MEDS: busPIRone 5mg tablet PO SCH ×2 (07:50→20:41)
[2021-12-09] MEDS: duloxetine 30mg CAPSULE.DR PO SCH (07:50)
[2021-12-09] MEDS: lisinopril 10 MG tablet PO SCH (07:51)
[2021-12-09 08:00] VITALS: BP 138/73
[2021-12-09] MEDS: levoFLOXACIN 750MG TABLET PO SCH (11:16)
--- NOTE | 2021-12-09 16:21 | NUR ---
Nursing Progress Note: Marcelle Problem: Pt brought to ED via EMS for GD was placed on a [address], and is now voluntary. Interventions: Maintained a safe and supportive environment, ensured contract for safety, provided clear and simple instructions, provided active listening and positive encouragement, encouraged participation on the unit, maintained fall precautions, and maintained Q 15min safety checks. Response: Received patient sleeping and woke to attend breakfast. Pt. denies SI, HI, A/VH and reports her DC plan is unknown. Pt. stated that leilani keeps calling me, its making me worried, he wants me to come back Pt. requested no more calls to come through from Mark Schilling and staff was notified. She continues on PO ABX for UTI, she reports dysuria with no urgency, and scant vaginal bleeding continues. N.O for probiotic received. Pt. has poor hygiene, disheveled, and wearing unit scrubs. She ate her meals in the dining room with cohorts, uses a 4WW for assistance, and often isolates from others. Weekly weight 55.9kg Plan: Pt. continues interruption of current crisis, medication adjustments, and a safe and supportive environment.
[2021-12-09 19:49] VITALS: BP 124/61
[2021-12-09] MEDS: PALIPERIDONE 3 MG TAB.ER.24 PO SCH (20:41)
[2021-12-09] MEDS: traZODone 50mg tablet PO SCH (20:41)
[2021-12-09] MEDS: lactobacillus rhamnosus 10,000 MMU CELLS/CAPSULE PO SCH (20:41)
[2021-12-09] MEDS: metFORMIN 500mg tablet PO SCH (20:41)
--- NOTE | 2021-12-10 05:18 | NUR ---
Nursing Progress Note Problem: Pt brought to ED via EMS for GD. Pt was not caring for self or eating per a roommate. Pt's belongings inventoried and put in locker. Interventions: Maintained a safe and supportive environment, ensured contract for safety, provided clear and simple instructions, maintained fall precautions, monitored behavior and provided redirection as needed, and maintained Q 15min safety checks. Response: Patient was labile this shift; she started the shift pleasant and cooperative and during med pass became paranoid and was refusing her medication. Stating, "I don't have to," and refusing to give an explanation why. With encouragement from sign writer letterer or painter she became agreeable and took her medication. Patient explained she wants to go back to the mobile home with her "friend." Patient was self isolative this shift and provided HS snack prior to bed; observed sleeping and does not appear to be having difficulty. Plan: Pt. requires a safe and supportive environment, medication titration until effective dose, needs to be monitored for crisis stabilization, and a viable plan for food, water & jail for discharge.
[2021-12-10] MEDS: aspirin 81mg tab.chew PO SCH (07:51)
[2021-12-10] MEDS: trihexyphenidyl 2mg tablet PO SCH ×2 (07:52→20:03)
[2021-12-10] MEDS: lisinopril 10 MG tablet PO SCH (07:52)
[2021-12-10] MEDS: losartan 25mg tablet PO SCH (07:52)
[2021-12-10] MEDS: duloxetine 30mg CAPSULE.DR PO SCH (07:52)
[2021-12-10] MEDS: lactobacillus rhamnosus 10,000 MMU CELLS/CAPSULE PO SCH ×2 (07:52→20:03)
[2021-12-10] MEDS: busPIRone 5mg tablet PO SCH ×2 (07:53→20:03)
[2021-12-10 07:58] VITALS: BP 134/64
[2021-12-10] MEDS ORDERED: INVEGA SUSTENNA IM SCH (08:00)
--- NOTE | 2021-12-10 11:14 | NUR ---
[facility] REFERRAL Completed and sent [facility] referral. [facility] will interview Marcelle around 2 PM tomorrow (12/11/21). JARET Tabares
[2021-12-10] MEDS: levoFLOXACIN 750MG TABLET PO SCH (11:15)
--- NOTE | 2021-12-10 16:47 | NUR ---
Nursing Progress Note: Marcelle Problem: Pt brought to ED via EMS for GD was placed on a [address], and is now voluntary. Interventions: Maintained a safe and supportive environment, ensured contract for safety, provided clear and simple instructions, provided active listening and positive encouragement, encouraged participation on the unit, maintained fall precautions, and maintained Q 15min safety checks. Response: Received patient sleeping and she awoke to attend breakfast. Pt. denies SI, HI, A/VH and reports her DC plan is going to a board and care. Pt. did re iterate not wanting to return to her previous housing. She presents with greasy hair and this conventional mortgage underwriter encouraged her to shower; pt. is receptive. She continues on PO ABX for UTI and reports improvement with an absence of dysuria today. Provider at the bedside and ordered a transvaginal US d/t ongoing bleeding, which was completed. Pt. speaks in a soft voice and keeps to herself. She ambulates ad kirk with a 4WW on the unit. Plan: Pt. continues interruption of current crisis, medication adjustments, and a safe and supportive environment.
[2021-12-10] MEDS: hydrOXYzine 25 MG tablet PO PRN (18:05)
[2021-12-10] MEDS: PALIPERIDONE 3 MG TAB.ER.24 PO SCH (20:03)
[2021-12-10] MEDS: metFORMIN 500mg tablet PO SCH (20:03)
[2021-12-10] MEDS: traZODone 50mg tablet PO SCH (20:03)
[2021-12-10 20:45] VITALS: BP 114/61
--- NOTE | 2021-12-10 21:25 | NUR ---
Nursing Progress Note: Marcelle Problem: Pt brought to ED via EMS for GD was placed on a [address], and is now voluntary. Interventions: Maintained a safe and supportive environment, ensured contract for safety, provided clear and simple instructions, provided active listening and positive encouragement, encouraged participation on the unit, maintained fall precautions, and maintained Q 15min safety checks. Response: Pt was showering at change of shift. She reports she wants to go home. Pt states she wants to stay in a [place] with her friend. Pt called friend and states she wants to be picked up tomorrow. Pt spoke with Josh Munoz this evening and decided she would stay until tomorrow, pt seemed to be in a better mood after talking with provided. She would not give me the name of the person she wants to leave with tomorrow or who she plans to stay with. I explained we want to make sure she has a safe place to go and she seemed to agree with that. Pt took HS meds and went to bed. Pt continues to use FWW to ambulate. Plan: Pt. continues interruption of current crisis, medication adjustments, and a safe and supportive environment.
[2021-12-11 07:36] VITALS: BP 118/64
[2021-12-11] MEDS: busPIRone 5mg tablet PO SCH ×2 (07:43→21:07)
[2021-12-11] MEDS: lisinopril 10 MG tablet PO SCH (07:43)
[2021-12-11] MEDS: aspirin 81mg tab.chew PO SCH (07:43)
[2021-12-11] MEDS: duloxetine 30mg CAPSULE.DR PO SCH (07:43)
[2021-12-11] MEDS: lactobacillus rhamnosus 10,000 MMU CELLS/CAPSULE PO SCH ×2 (07:43→21:07)
[2021-12-11] MEDS: trihexyphenidyl 2mg tablet PO SCH ×2 (07:44→20:00)
[2021-12-11] MEDS: losartan 25mg tablet PO SCH (07:44)
[2021-12-11] MEDS: hydrOXYzine 25 MG tablet PO PRN (10:24)
[2021-12-11] MEDS: levoFLOXACIN 750MG TABLET PO SCH (10:24)
[2021-12-11] MEDS ORDERED: LORazepam 0.5 MG tablet PO PRN (11:15)
--- NOTE | 2021-12-11 15:02 | NUR ---
DECLINED AT [facility] Triston from [facility] interviewed Marcelle today. He reported that client has been declined at [facility]. "Due to the current/ongoing construction, and client requiring a walker to ambulate, client is a fall risk. With the construction, the jody is uneven and has lips that create tripping hazards. It was also reported that client takes very small steps and would not be able to exit the building in a safe/timely manner in an emergency". Marcelle does have an appointment on 12/19/2021 [facility] with her case planner, Odalys Mercedes. JARET Tabares
--- NOTE | 2021-12-11 15:27 | NUR ---
[employer] Client attended group, arriving somewhat late. Group focus was resilience and responding to change, specifically psychosocial education about change-related anxiety, and coping mechanisms. Group was a peer discussion, sharing ideas. Peer ideas included smells (essential oils, things that smell like peppermint), talking to someone, walking, hydrating and eating, trying to get good sleep, and avoiding using substances specifically alcohol to try to get some sleep. Client shared she used to have a keyboard, and playing music she found relaxing, with her peers affirming this was interesting and empowering.
--- NOTE | 2021-12-11 16:08 | NUR ---
Nursing Progress Note: Marcelle Problem: Pt brought to ED via EMS for GD was placed on a [address], and is now voluntary. Interventions: Maintained a safe and supportive environment, ensured contract for safety, provided clear and simple instructions, provided active listening and positive encouragement, encouraged participation on the unit, maintained fall precautions, and maintained Q 15min safety checks. Response: Received patient sleeping and she awoke to take her medications, with no hesitation. Pt. presented as delusional gesturing to her left stating he keeps wanting me to go home Pt. did deny A/VH as well as SI,HI. Her anxiety progressed and was given PRN Atarax. Pt. spent time isolating in her room and pacing the unit. Later staff alerted manual writer pt. is presenting as anxious and paranoid. Spoke to pt. and she reported Im not safe here, everyone talking about me. Spoke to provider N.O received for Ativan, and medication was given. Later, pt. reported I feel better, not too scared anymore Pt. speaks in a soft voice and keeps to herself. She ambulates ad kirk with a 4WW on the unit. Pt. was interviewed today by [facility]. Plan: Pt. continues interruption of current crisis, medication adjustments, and a safe and supportive environment.
[2021-12-11 19:19] VITALS: BP 104/55
[2021-12-11] MEDS: PALIPERIDONE 3 MG TAB.ER.24 PO SCH (21:07)
[2021-12-11] MEDS: metFORMIN 500mg tablet PO SCH (21:07)
[2021-12-11] MEDS: traZODone 50mg tablet PO SCH (21:07)
--- NOTE | 2021-12-12 00:51 | NUR ---
Nursing Progress Note: Marcelle Problem: Pt brought to ED via EMS for GD was placed on a [address], and is now voluntary. Interventions: Maintained a safe and supportive environment, ensured contract for safety, provided clear and simple instructions, provided active listening and positive encouragement, encouraged participation on the unit, maintained fall precautions, and maintained Q 15min safety checks. Response: Patient was in bed at change of shift and patient up with her walker for a short period of time then went back to bed. RN sat with patient in her room while giving her her medication. Patient was calm and cooperative. Patient denies SI and denies a/v hallucinations. Patient started talking about staff and was somewhat inappropriate (not sexually or in a mean spirit) but appears to have poor insight while she talked about an employee and slavery. Patient does not have a good safety plan and POLI Knight is looking into possibilities for patient. Plan: Pt. continues interruption of current crisis, medication adjustments, and a safe and supportive environment.
--- NOTE | 2021-12-12 07:27 | NUR ---
Reassessment: Pt Currently on Carb control diet w/ mostly 100% intake of meals meeting est needs. LBM 12/11. No nutrition intervention implemented at this time, will continue to monitor. Recs; 1. Continue Carb control diet as tolerated 2. Bowel care PRN 3. Weekly wts Addendum: 12/12/21 at [address] Amended: Links added.
[2021-12-12 07:29] VITALS: BP 108/74
[2021-12-12] MEDS: trihexyphenidyl 2mg tablet PO SCH ×2 (08:07→19:56)
[2021-12-12] MEDS: losartan 25mg tablet PO SCH (08:08)
[2021-12-12] MEDS: lisinopril 10 MG tablet PO SCH (08:08)
[2021-12-12] MEDS: duloxetine 30mg CAPSULE.DR PO SCH (08:08)
[2021-12-12] MEDS: lactobacillus rhamnosus 10,000 MMU CELLS/CAPSULE PO SCH ×2 (08:08→19:57)
[2021-12-12] MEDS: aspirin 81mg tab.chew PO SCH (08:08)
[2021-12-12] MEDS: busPIRone 5mg tablet PO SCH ×2 (08:08→19:57)
[2021-12-12] MEDS: levoFLOXACIN 750MG TABLET PO SCH (11:03)
--- NOTE | 2021-12-12 17:46 | NUR ---
Nursing Progress Note: Problem: Patient brought to ED via EMS for GD was placed on a [address], and is now voluntary. Interventions: Maintained a safe and supportive environment, ensured contract for safety, provided clear and simple instructions, provided active listening and positive encouragement, encouraged participation on the unit, maintained fall precautions, and maintained Q 15min safety checks. Response: Patient ambulated using a FWW to the Community Room for breakfast. Patient awake, alert and smiling this morning. Ate breakfast with her roommate and 1 other peer. All three had great morning conversation as well as patient stayed in the Community Room watching TV with others after breakfast. Patient took her medications without hesitation. Patient took a brief morning nap, then returned to the Community Room for lunch. Patient denies SI & AV/AH Hallucinations, and reported to this functional tester typewriters I am still living with controlling man. Patient appears upbeat and is sharing information with others throughout the day. Patient was observed closely throughout the shift for s/s of anxiety, and none were seen. Plan: Pt. continues interruption of current crisis, medication adjustments, and a safe and supportive environment.
[2021-12-12 20:00] VITALS: BP 113/59
[2021-12-12] MEDS: metFORMIN 500mg tablet PO SCH (20:00)
[2021-12-12] MEDS: traZODone 50mg tablet PO SCH (20:00)
[2021-12-12] MEDS: PALIPERIDONE 3 MG TAB.ER.24 PO SCH (20:01)
--- NOTE | 2021-12-13 02:40 | NUR ---
Nursing Progress Note: Problem: Patient brought to ED via EMS for GD was placed on a [address], and is now voluntary. Interventions: Maintained a safe and supportive environment, ensured contract for safety, provided clear and simple instructions, provided active listening and positive encouragement, encouraged participation on the unit, maintained fall precautions, and maintained Q 15min safety checks. Response: Patient was awake and sitting in her chair next to her bed at change of shift. 1:1 done at bedside and medications administered with no issues. Pt states she is being discharged home tomorrow and she is happy with this decision. Denies S/HI, A/VH. Pt was calm, polite and cooperative. Plan: Pt. continues interruption of current crisis, medication adjustments, and a safe and supportive environment.
[2021-12-13] MEDS: trihexyphenidyl 2mg tablet PO SCH (08:19)
[2021-12-13] MEDS: lactobacillus rhamnosus 10,000 MMU CELLS/CAPSULE PO SCH (08:19)
[2021-12-13] MEDS: aspirin 81mg tab.chew PO SCH (08:19)
[2021-12-13] MEDS: lisinopril 10 MG tablet PO SCH (08:20)
[2021-12-13] MEDS: losartan 25mg tablet PO SCH (08:20)
[2021-12-13] MEDS: busPIRone 5mg tablet PO SCH (08:20)
[2021-12-13] MEDS: duloxetine 30mg CAPSULE.DR PO SCH (08:20)
[2021-12-13 08:24] VITALS: BP 128/56
[2021-12-13] MEDS ORDERED: LISI10TA27 PO (09:57)
[2021-12-13] MEDS ORDERED: PALI6TAB PO (09:57)
--- NOTE | 2021-12-13 17:17 | NUR ---
Discharge Note: Received Discharge Orders written by USAMA Zarco. Patient received her belongings from MISTY Brizuela, that were listed on her belongings checklist. There were no discrepancies about the listed items on the Belongings Form or the items that were returned to her. Discharge Instructions were reviewed with the patient 1:1 by this Picking Table Worker, and patient understood which medications she had received today, and which medications she needed to take at bedtime tonight. Follow up appointments to an appointment on 12/19/2021 to [facility] with your case preparer and liner, Odalys Mercedes was reviewed with the patient, as well as her appointment with Psychiatrist Appointment: 12/18/21 at 9 AM with Marion Nicholson NP at [facility]. Patient understood the discharge information given to her in verbal and written format, and signed the acknowledgment form. Patient [facility] 1200 [facility]
== END 2021-12-13 12:08 | disposition home or self-care (01) | DRG 885 ==
LOC: ER 17:41 → ED HOLD 12-01 14:25 → ADULT MH 12-01 17:05
PROVIDERS: ADMIT Psychiatry & Neurology Psychiatry; ATTEND Psychiatry & Neurology Psychiatry
DX: F25.0 Schizoaffective disorder, bipolar type (principal); N39.0 Urinary tract infection, site not specified; E78.00 Pure hypercholesterolemia, unspecified; I10 Essential (primary) hypertension; E11.9 Type 2 diabetes mellitus without complications; Z20.822 Contact with and (suspected) exposure to COVID-19; B96.20 Unspecified Escherichia coli [E. coli] as the cause of diseases classified elsewhere; F31.81 Bipolar II disorder; R62.7 Adult failure to thrive; S16.1XXA Strain of muscle, fascia and tendon at neck level, initial encounter; R26.9 Unspecified abnormalities of gait and mobility; N93.8 Other specified abnormal uterine and vaginal bleeding; X58.XXXA Exposure to other specified factors, initial encounter; R45.84 Anhedonia; M54.2 Cervicalgia; F41.9 Anxiety disorder, unspecified; Z79.899 Other long term (current) drug therapy; Z79.84 Long term (current) use of oral hypoglycemic drugs; Z83.3 Family history of diabetes mellitus; Z91.410 Personal history of adult physical and sexual abuse; Z68.22 Body mass index [BMI] 22.0-22.9, adult; Z88.8 Allergy status to other drugs, medicaments and biological substances; Y93.89 Activity, other specified; Y92.89 Other specified places as the place of occurrence of the external cause; Y99.8 Other external cause status
CPT/HCPCS: 36415; 70450; 76830; 76856; 80053; 80061; 80305; 80320; 81001; 81003; 83036; 84443; 85025; 87077; 87081; 87088; 87186; 87811; 93005; 93976; 99285; J2426; Q0177

== ENCOUNTER 2022-04-25 14:29 | Inpatient (IN) | payer BC, MEDICAID ==
[~2022-04-25] VITALS: Ht 165.1 cm; Wt 62.1 kg
[~2022-04-25 14:29] MED LIST changes: -ATOR10TA PO; +BUSP10TA11 PO; -BUSP5TAB26 PO; +DULO-31 PO; -DULO30CA52 PO; -GABA300C PO; +LISI10TA27 PO; -LOSA25TA41 PO; +LOSA25TA96 PO; -METF-1203 PO; +METF-438 PO; +PALI117D IM; +PALI6TAB PO; -TRAZ-251 PO; +TRAZ-256 PO; +TRIH2TAB3 PO; +invega sustenna IM
[2022-04-25 18:01] LABS: BASOPHILS % (AUTO) 0.5 % (0-1); EOSINOPHILS # (AUTO) 0.2 X10'3 (0-0.9); EOSINOPHILS % (AUTO) 3.2 % (0-6); HEMATOCRIT 38.6 % (35.0-45.0); HEMOGLOBIN 12.9 g/dl (12.0-16.0); LYMPHOCYTES # (AUTO) 1.6 X10'3 (1.1-4.8); LYMPHOCYTES % (AUTO) 20.5 % (21-51); MEAN CORPUSCULAR HGB CONC 33.4 g/dL (33.0-36.5); MEAN CORPUSCULAR VOLUME 89.7 FL (78-98); MEAN PLATELET VOLUME 7.8 FL (7.4-10.4); MONOCYTES % (AUTO) 12.2 % (2-12); NEUTROPHILS % (AUTO) 63.6 % (42-75); PLATELET COUNT 199 X10'3 (140-440); RED CELL DISTRIBUTION WIDTH 13.6 % (11.5-14.5); WHITE BLOOD COUNT 7.9 X10'3 (4.5-11.0)
[2022-04-25 18:18] LABS: ALANINE AMINOTRANSFERASE 28 U/L (12-78); ALBUMIN 3.4 G/DL (3.4-5.0); ALBUMIN/GLOBULIN RATIO 1.1 (1.1-1.5); ALKALINE PHOSPHATASE 72 IU/L (46-116); ANION GAP 7 (8-16); ASPARTATE AMINO TRANSFERASE 30 U/L (10-37); BILIRUBIN,TOTAL 0.3 MG/DL (0.1-1.0); BLOOD UREA NITROGEN 13 MG/DL (7-18); BUN/CREATININE RATIO 17.6 (6.6-38.0); CHLORIDE 105 MMOL/L (99-107); CREATININE 0.74 MG/DL (0.40-0.90); GLUCOSE 77 MG/DL (70-104); POTASSIUM 3.9 MMOL/L (3.5-5.1); SODIUM 141 MMOL/L (135-145); TOTAL CARBON DIOXIDE 29.2 MMOL/L (24-32); TOTAL PROTEIN 6.6 G/DL (6.4-8.2); eGFR 78 ML/MIN
[2022-04-25 18:53] LABS: ETHANOL < 0.010 GM/DL (0.0-0.010)
--- NOTE | 2022-04-25 20:13 | NUR ---
pt was in er lobby for couple of hours ,no triage was done on the pt ,sql report writer gathered information to triage the pt by looking at written 5150 note and stephine hairspring i inspector 's report .pt took 3 losartan instead of 1 losartan as per QUALITY MEASUREMENT SPECIALIST notes ,bp was wnl while doing triage .sbar to primary rn iron that sql report writer has approx 10 mins of interaction with the pt ,pt is very pleasent .assummed care at 2000 hr and sbar to iron rn over the phone at 2014.
--- NOTE | 2022-04-25 21:08 | NUR ---
Patient was given juice, yogurt, and grahm crackers which she ate. The patient then went to sleep. She continues to sleep quietly in a mid fowlers position. No distress.
--- NOTE | 2022-04-25 22:15 | NUR ---
Patient is sleeping quietly in a mid fowlers position. No distress.
--- NOTE | 2022-04-25 22:27 | NUR ---
On interview at bedside earlier the patient tells this television writer that she has had a history of mental illness. She denies Schizophrenia or Bipolar. Patient states she [facility] a [facility] hears [facility]. She thinks she may have been hospitalized for psych in [place] too.
--- NOTE | 2022-04-25 23:25 | NUR ---
Patient is up to bathroom to void. She ambulates with the use of a walker. Patient then returned to bed.
--- NOTE | 2022-04-26 01:24 | NUR ---
Patient is sleeping quietly in a low fowlers position.
--- NOTE | 2022-04-26 02:21 | NUR ---
Patient sleeps quietly. In direct view from nurses station.
--- NOTE | 2022-04-26 03:20 | NUR ---
Patient continues to sleep well in a mid fowlers position. Good color, regular resp.
[2022-04-26] MEDS ORDERED: METF-438 PO (04:15)
[2022-04-26] MEDS ORDERED: TRAZ-251 PO (04:41)
[2022-04-26] MEDS ORDERED: PALI156D IM (04:41)
[2022-04-26] MEDS ORDERED: BUPR-317 PO (04:41)
[2022-04-26] MEDS ORDERED: METF-1203 PO (04:41)
[2022-04-26] MEDS ORDERED: GABA300C PO (04:46)
[2022-04-26] MEDS ORDERED: HYDR-3927 PO (04:46)
--- NOTE | 2022-04-26 06:44 | NUR ---
Pt appears to be sleeping on her backside, noted rise and fall of chest.
--- NOTE | 2022-04-26 08:00 | NUR ---
Pt denies SI, unsure why she would take more medications than she was suppose to. Pt is confused about the incidents that brought her here.
--- NOTE | 2022-04-26 08:33 | NUR ---
Pt awake and has utilzed the restroom. Nurse attempted to obtain urine for UA and tox screen but was unsuccessful. Pt is now eating her breakfast at ther bedside.
[2022-04-26] MEDS: duloxetine 30mg CAPSULE.DR PO SCH (09:46)
[2022-04-26] MEDS: buPROPion SR 150mg tablet PO SCH (09:46)
[2022-04-26] MEDS: metFORMIN 500mg tablet PO SCH ×2 (09:46→20:30)
[2022-04-26] MEDS: losartan 25mg tablet PO SCH (09:47)
--- NOTE | 2022-04-26 10:21 | NUR ---
Pt resting on her backside, noted rise and fall of chest.
[2022-04-26 11:20] LABS: CLARITY,URINE CLEAR (Clear); COLOR,URINE STRAW (Yellow); GLUCOSE, URINE NEGATIVE (Neg); KETONES,URINE NEGATIVE (Neg); LEUKOCYTE ESTERASE ,URINE SMALL (Neg); NITRITES, URINE NEGATIVE (Neg); OCCULT BLOOD,URINE TRACE-INTACT (Neg); PROTEIN,URINE NEGATIVE (Neg); UA COLLECTION TYPE VOIDED; UROBILINOGEN,URINE 0.2 E.U/dL (0.2-1.0)
[2022-04-26 11:25] LABS: BACTERIA,URINE FEW /HPF (Neg); MUCUS STRANDS NONE SEEN /LPF (Neg); RBC,URINE 0-2 /HPF (0-2); SQUAMOUS EPITHELIAL CELL,UR FEW /LPF (FEW); WBC,URINE 0-4 /HPF (0-4)
--- NOTE | 2022-04-26 11:26 | NUR ---
Pt requested to use the restroom. Pt ambulated with walker. Urine obtained and sent to lab.
[2022-04-26 11:51] LABS: URINE AMPHETAMINE SCREEN NEGATIVE (Neg); URINE BARBITUATE SCREEN NEGATIVE (Neg); URINE BENZODIAZEPINES SCREEN NEGATIVE (Neg); URINE CANNABINOID SCREEN NEGATIVE (Neg); URINE COCAINE SCREEN NEGATIVE (Neg); URINE METHADONE SCREEN NEGATIVE (Neg); URINE OPIATE SCREEN NEGATIVE (Neg); URINE PHENCYCLIDINE SCREEN NEGATIVE (Neg)
--- NOTE | 2022-04-26 12:20 | NUR ---
Packet sent to [facility] with lab results.
--- NOTE | 2022-04-26 12:21 | NUR ---
[facility] per their request.
--- NOTE | 2022-04-26 12:21 | NUR ---
Pt eating lunch at bedside.
--- NOTE | 2022-04-26 14:44 | NUR ---
Pt. yelling and attemted to leave the unit stating, "I want out of here, I want to leave." Pt was informed shes on a hold and responded, "oh I am" and returned to her bed.
--- NOTE | 2022-04-26 16:48 | NUR ---
Pt resting on her backside with her eyes open. No distress noted.
--- NOTE | 2022-04-26 18:36 | NUR ---
Pt moved to bed 24. Pt eating dinner at bedside.
--- NOTE | 2022-04-26 19:40 | NUR ---
Pt. lying on her backside with eyes closed, noted rise and fall of the chest.
[2022-04-26] MEDS: busPIRone 5mg tablet PO SCH (20:30)
[2022-04-26] MEDS: gabapentin 300mg capsule PO SCH (20:30)
[2022-04-26] MEDS: traZODone 50mg tablet PO SCH (20:31)
[2022-04-26] MEDS: hydrOXYzine 25 MG tablet PO PRN (20:56)
--- NOTE | 2022-04-26 20:57 | NUR ---
Pt. yelling out, "why do you guys think im paranoid! I'm not paranoid, she is, stop talking about me!" Pt assured we are not making such statements and asked if she would like a PRN for anxiety. Pt thought this was a good idea. PRN atarax adminsitered. Pt continues to shout out, "why are you guys talking about me."
--- NOTE | 2022-04-26 21:57 | NUR ---
Admit note: 71-year-old female admitted to [place] for Behavioral Health on a 5150 at 2157 for depression and grave disability. Is unable to take medications correctly and unable to provide food and longterm.
[2022-04-26] MEDS ORDERED: magnesium hydroxide 30ml (MOM) UD suspension PO PRN (22:00)
[2022-04-26] MEDS ORDERED: mag hydrox/Alum hydrox/simeth 30ml oral suspension PO PRN (22:00)
[2022-04-26] MEDS ORDERED: loperamide 2mg capsule PO PRN (22:00)
[2022-04-26] MEDS ORDERED: acetaminophen 325mg tablet PO PRN ×2 (22:00)
[2022-04-26 22:25] VITALS: BP 134/78
--- NOTE | 2022-04-26 22:30 | NUR ---
Patient skin check and 1:1 assessment done. Got her cleaned up and teeth brushed then assisted into bed for the night. Patient pleasant and cooperative. Will continue to monitor.
--- NOTE | 2022-04-27 02:47 | NUR ---
Nursing Progress Note: Problem: 71-year-old female admitted to [place] for [facility] on a 5150 at 2157 for depression and grave disability. Is unable to take medications correctly and unable to provide food and intermediate. Interventions: Medication administration, 1:1 MH assessment, maintained a safe and supportive environment, provided clear and simple instructions, provided encouragement regarding performance of ADLs, monitored behaviors and maintained clear boundaries, maintained Q15 minute safety checks. Response: Patient arrived to unit last night in W/C. Noted to be wearing green scrubs and glasses with unkempt hair. Patient confused and when spoken to expressed unrelated thoughts with each sentence thereafter. Assisted to BR to change depend and noted to be malodorous. Offered patient warm wipes to clean herself up and brushed her hair. Patient is soft spoken, calm and cooperative. Able to get up with walker and 1 assist. Redirectable. HS meds given in overflow prior to arrival. No PRNs administered. Slept well. Will continue to monitor. Plan: To be determined.
--- NOTE | 2022-04-27 05:30 | NUR ---
[place] ANGELN reported that patient had light vaginal bleeding noted in depend and in toilet. Patient reported to nurse that she recently had a "uterine wall or vaginal biopsy," she wasn't sure which one. Will continue to monitor.
[2022-04-27] MEDS: buPROPion SR 150mg tablet PO SCH (07:46)
[2022-04-27] MEDS: duloxetine 30mg CAPSULE.DR PO SCH (07:46)
[2022-04-27] MEDS: gabapentin 300mg capsule PO SCH ×2 (07:46→21:14)
[2022-04-27] MEDS: metFORMIN 500mg tablet PO SCH ×2 (07:46→21:14)
[2022-04-27] MEDS: busPIRone 5mg tablet PO SCH ×2 (07:46→21:15)
[2022-04-27] MEDS: losartan 25mg tablet PO SCH (07:47)
[2022-04-27 08:00] VITALS: BP 138/78
--- NOTE | 2022-04-27 14:32 | NUR ---
Nursing Progress Note: Problem: 71-year-old female admitted to [place] for Behavioral Health on a 5150 at 2157 for depression and grave disability. Is unable to take medications correctly and unable to provide food and nursing home. Interventions: 1:1 assessment, establishment of rapport, therapeutic conversation, active listening, medication administration/education/monitoring, maintained a safe and supportive environment, provided clear and simple instructions, provided encouragement regarding performance of ADLs, fall prevention, provided distraction, direction, positive reinforcement, and maintained Q15 minute safety checks. Response: Pt was up before breakfast. Pt uses a FWW. Pt is able to perform her ADLs slowly with set-up. Pt wears incontinent briefs. Pt was cooperative with scheduled medications. Discussed vaginal bleeding findings with hospitalist Dr Arriaga who reported that pt had 2 biopsies done and they both came back benign. Pt denies depression/SI/HI/AH/VH. Pt reports, "I have happy feet." Pt stated that she can't seem to stop moving her feet. Pt observed sitting on the side of her bed with her feet on the floor bouncing gently up and down. Reported pt's complaints of being unable to keep her feet still to PA Alexander who indicated that he would assess. Pt had a recent fall, pt has small abrasions bilateral elbows, no s/sx infection, continue to monitor. Plan: Pt in need of a safe and therapeutic environment with medication adjustment and monitoring until pt is stable and a viable discharge plan has been formulated.
[2022-04-27 16:30] LABS: CHOL/HDL RATIO 2.8 (0.00-4.99); CHOLESTEROL 170 MG/DL (0-200); HDL CHOLESTEROL 60 MG/DL (35-60); LDL CHOLESTEROL 90 MG/DL (50-100); TRIGLYCERIDES 127 MG/DL (20-135)
[2022-04-27 16:33] LABS: HEMOGLOBIN A1C 6.1 % (4.5-6.2)
[2022-04-27 20:00] VITALS: BP 137/73
[2022-04-27] MEDS: traZODone 50mg tablet PO SCH (21:14)
--- NOTE | 2022-04-28 03:43 | NUR ---
Nursing Progress Note: Problem: 71-year-old female admitted to [place] for Behavioral Health on a 5150 at 2157 for depression and grave disability. Is unable to take medications correctly and unable to provide food and residential. Interventions: Medication administration, 1:1 MH assessment, maintained a safe and supportive environment, provided clear and simple instructions, provided encouragement regarding performance of ADLs, monitored behaviors and maintained clear boundaries, maintained Q15 minute safety checks. Response: received pt. in bed at the start of shift change. Pt. is pleasant, cooperative and soft spoken. Later pt. observed walking to the community room w/FWW for snack. Compliant with medications. Denies SI/HI, AH/VH. Pt. later observed sitting on the side of the bed brushing her teeth. Awaken a couple times throughout the night for toileting. Pt. uses the call kenney for assistance getting out of bed. Observed and appears to be sleeping. Plan: To be determined.
[2022-04-28 08:00] VITALS: BP 121/78
[2022-04-28] MEDS: gabapentin 300mg capsule PO SCH ×2 (08:38→21:38)
[2022-04-28] MEDS: metFORMIN 500mg tablet PO SCH ×2 (08:38→21:38)
[2022-04-28] MEDS: duloxetine 30mg CAPSULE.DR PO SCH (08:38)
[2022-04-28] MEDS: buPROPion SR 150mg tablet PO SCH (08:38)
[2022-04-28] MEDS: losartan 25mg tablet PO SCH (08:38)
[2022-04-28] MEDS: busPIRone 5mg tablet PO SCH ×2 (08:40→21:37)
--- NOTE | 2022-04-28 15:38 | NUR ---
Nursing Progress Note: Problem: 71-year-old female admitted to [place] for Behavioral Health on a 5150 at 2157 for depression and grave disability. Is unable to take medications correctly and unable to provide food and assisted. Interventions: Medication administration, 1:1 MH assessment, maintained a safe and supportive environment, provided clear and simple instructions, provided encouragement regarding performance of ADLs, monitored behaviors and maintained clear boundaries, maintained Q15 minute safety checks. Response: Patient up eating breakfast and luinch with peers. Walks slowly with front wheel walker. Shows no s/sx of distress SI/HI, AH/VH. compliant with all medications and care. Patient watched movies in day room interacting with peers appropriately. All safety measures in place. Uses call light for assistance. Will continue to monitor. Plan: To be determined.
[2022-04-28 20:00] VITALS: BP 109/67
[2022-04-28] MEDS: traZODone 50mg tablet PO SCH (21:38)
--- NOTE | 2022-04-29 03:22 | NUR ---
Nursing Progress Note: Problem: 71-year-old female admitted to [place] for Behavioral Health on a 5150 at 2157 for depression and grave disability. Is unable to take medications correctly and unable to provide food and snf. Interventions: Medication administration, 1:1 MH assessment, maintained a safe and supportive environment, provided clear and simple instructions, provided encouragement regarding performance of ADLs, monitored behaviors and maintained clear boundaries, maintained Q15 minute safety checks. Response: Upon start of shift noted patient sitting up on side of bed drinking water wearing green scrubs. Noted to be a small woman, short in stature. Well-groomed and good hygiene noted. Soft spoken and happy. Calm/cooperative. Easily directable. Slow moving shuffling gait while up with walker to BR. Has history of falls. Requires 1 person assist after HS meds as she report feeling, dizzy. Scant vaginal bleeding noted to depend and drops in toilet. This nurse requested that patient utilize call light to alert nurse when she needs to use BR. Able to follow commands. HS med compliant. Takes Metformin, HS blood sugar was 126. Accuchecks to resume to daily and PRN. Slept well this shift. Nocturia noted x 2 this shift with scant vaginal bleeding noted in depend. Recent vaginal bx performed. Will continue to monitor. HS med compliant. No PRNs administered. Slept well so far this shift. Plan: To be determined.
[2022-04-29 08:00] VITALS: BP 127/69
[2022-04-29] MEDS: busPIRone 5mg tablet PO SCH ×2 (08:44→20:22)
[2022-04-29] MEDS: duloxetine 30mg CAPSULE.DR PO SCH (08:44)
[2022-04-29] MEDS: gabapentin 300mg capsule PO SCH ×2 (08:44→20:22)
[2022-04-29] MEDS: metFORMIN 500mg tablet PO SCH ×2 (08:44→20:22)
[2022-04-29] MEDS: buPROPion SR 150mg tablet PO SCH (08:44)
[2022-04-29] MEDS: losartan 25mg tablet PO SCH (09:42)
--- NOTE | 2022-04-29 13:59 | NUR ---
Left message requesting a call back from pillowcase folder, Odalys Mercedes (ph# [phone]). Need to inquire about [facility] and Care. JARET Tabares
--- NOTE | 2022-04-29 16:39 | NUR ---
Nursing Progress Note: Problem: 71-year-old female admitted to [place] for [facility] on a 5150 at 2157 for depression and grave disability. Is unable to take medications correctly and unable to provide food and mcc. Interventions: Medication administration, 1:1 MH assessment, maintained a safe and supportive environment, provided clear and simple instructions, provided encouragement regarding performance of ADLs, monitored behaviors and maintained clear boundaries, maintained Q15 minute safety checks. Response: Upon turn of shift noted patient requesting for standby assistance to BR. Patient appears to be getting more strength back as shes able to stand up with slight assistance and lay back in bed more on her own than before. Shuffling gait appears to be more stable while up with FWW. Fall risk precautions in place. Call light within reach. RN encourages patient to call for help. Patients mood is bright and calm. Compliant with AM meds. No PRNs given. Is curious and asks questions about her care. No psyche sx noted. AM blood glucose was checked after breakfast. Noted to be 176. Patient noted to get herself up to BR without asking for help as the day progressed as she is attempting to be less reliant on staff. Staff expresses that we want to keep her safe and do want to assist her when we see her up. Patient reports to nurse that she told Ghanshyam fenton like to go to a board and care and is excited about it. Will continue to monitor. Plan: To be determined.
[2022-04-29 20:00] VITALS: BP 117/61
[2022-04-29] MEDS: traZODone 50mg tablet PO SCH (20:22)
--- NOTE | 2022-04-30 01:44 | NUR ---
Nursing Progress Note: Problem: 71-year-old female admitted to [place] for Behavioral Health on a 5150 at 2157 for depression and grave disability. Is unable to take medications correctly and unable to provide food and halfway. Interventions: Medication administration, 1:1 MH assessment, maintained a safe and supportive environment, provided clear and simple instructions, provided encouragement regarding performance of ADLs, monitored behaviors and maintained clear boundaries, maintained Q15 minute safety checks. Response: Pt sitting on side of bed in room at start of shift. Her affect is bright . Pt says she is going to a Board and care in [facility]. She said she is happy about it because she does not want to return home "I can't take care of myself." The SW note does not reflect the plan to go to a usp is as certain as the pt seems to believe. Pt has some confusion and memory loss. She said she lived in a Board and care before but can't remember where or when. Pt declined to go to group room for snack. She was up independently to and changed her depends. Took her meds and went to sleep. Plan: To be determined.
[2022-04-30] MEDS: gabapentin 300mg capsule PO SCH ×2 (07:35→20:34)
[2022-04-30] MEDS: busPIRone 5mg tablet PO SCH ×2 (07:35→20:34)
[2022-04-30] MEDS: metFORMIN 500mg tablet PO SCH ×2 (07:35→20:34)
[2022-04-30] MEDS: buPROPion SR 150mg tablet PO SCH (07:36)
[2022-04-30] MEDS: losartan 25mg tablet PO SCH (07:36)
[2022-04-30] MEDS: duloxetine 30mg CAPSULE.DR PO SCH (07:36)
[2022-04-30 08:00] VITALS: BP 138/80
--- NOTE | 2022-04-30 14:45 | NUR ---
Marcelle's case management coordinator, Odalys Mercedes, stopped by to see Marcelle. Marcelle is agreeable to going to a board and care and [facility] has an opening. Odalys reported Marcelle may need to do an interview. Asked Odalys to have the facility call tag writer to coordinate an interview and necessary paperwork. JARET Tabares
--- NOTE | 2022-04-30 17:23 | NUR ---
Nursing Progress Note: Problem: 71-year-old female admitted to [place] for [facility] on a 5150 at 2157 for depression and grave disability. Is unable to take medications correctly and unable to provide food and senior living. Interventions: Medication administration, 1:1 MH assessment, maintained a safe and supportive environment, provided clear and simple instructions, provided encouragement regarding performance of ADLs, monitored behaviors and maintained clear boundaries, maintained Q15 minute safety checks. Response: Patient was received when she was sitting in the Community Room drinking coffee. Patients blood sugar was checked via Accu-Check which was 103 (fasting). Patient took her medication without hesitation and participated in meal times and snacks. Marcelle participated in the Group Meeting at 1130. Patient ambulates with a walker at all times. Patient informed this Community Development Coordinator that she was accepted at a Board and Care in [place] and I might need to interview. Patient was informed per Kenia, mechanical maintenance technician, that they will inform her if they need to complete an interview with her. Patient spent the afternoon in the Community Room watching TV and visiting with peers. Plan: Patients Gymnastic Coach, Odalys Mercedes, stopped by the see the patient. Patient reported to Odalys that she is agreeable to go to a Board & Care, and was informed she might need to undergo an interview.
[2022-04-30 20:00] VITALS: BP 104/69
[2022-04-30] MEDS: traZODone 50mg tablet PO SCH (20:34)
--- NOTE | 2022-05-01 03:59 | NUR ---
Nursing Progress Note: Problem: 71-year-old female admitted to [place] for [facility] on a 5150 at 2157 for depression and grave disability. Is unable to take medications correctly and unable to provide food and skilled nursing. Interventions: Medication administration, 1:1 MH assessment, maintained a safe and supportive environment, provided clear and simple instructions, provided encouragement regarding performance of ADLs, monitored behaviors and maintained clear boundaries, maintained Q15 minute safety checks. Response: Upon turn of shift noted patient sitting on side of bed. Noted patient not requiring as much assistance with standing up while continuing to provide standby as needed. Shuffling gait appears more stable while up with FWW. Fall risk precautions in place. Call light within reach. RN encourages patient to call for help. Patients mood is pleasant, calm and cooperative. Compliant with meds. No PRNs required. No psyche sx noted. Blood glucose stable. Metformin continues. Reports feeling sad that she will be going to a board and care in [place] as she will miss her friend/roommate. Will continue to monitor. Plan: Pending discharge to [facility] in [place].
[2022-05-01] MEDS: buPROPion SR 150mg tablet PO SCH (07:19)
[2022-05-01] MEDS: busPIRone 5mg tablet PO SCH ×2 (07:20→19:43)
[2022-05-01] MEDS: duloxetine 30mg CAPSULE.DR PO SCH (07:20)
[2022-05-01] MEDS: metFORMIN 500mg tablet PO SCH ×2 (07:20→19:43)
[2022-05-01] MEDS: losartan 25mg tablet PO SCH (07:20)
[2022-05-01] MEDS: gabapentin 300mg capsule PO SCH ×2 (07:20→19:43)
[2022-05-01 08:00] VITALS: BP 113/62
--- NOTE | 2022-05-01 12:01 | NUR ---
Initial: Pt admit DX schizoaffective d/o, HTN, and DM; noted hx T2DM on metformin once daily at home but current A1C 6.1% w/ highest A1C last year 6.4% per EMR unsure accuracy. Pt Glu 105mg/dl this AM receiving metformin BID w/ 100% intake of regular diet. LBM 04/29. No nutrition interventions at this time. Will continue to follow. Rec: 1. continue regular diet; carb controlled diet not indicated given A1C 6.1% receiving twice the metformin frequency than home dose per EMR 2. bowel care per rx 3. weekly wt Addendum: 05/01/22 at [address] Amended: Links added.
--- NOTE | 2022-05-01 17:08 | NUR ---
Nursing Progress Note: Marcelle Problem: 71-year-old female admitted to [place] for [facility] on a 5150 at 2157 for depression and grave disability. Is unable to take medications correctly and unable to provide food and halfway. Interventions: Medication administration, 1:1 MH assessment, maintained a safe and supportive environment, provided clear and simple instructions, provided encouragement regarding performance of ADLs, monitored behaviors and maintained clear boundaries, maintained Q15 minute safety checks. Response: Pt. received asleep at change of shift. She awoke for FBS check which was 105, pt. took her medications without hesitation. She was offered a shower as she was malodorous and her hair was very greasy; she was receptive. Pt. denies SI, HI, AH, VH and reports her DC plan may be to a board and care. She walks with a short slow gait and utilizes a front wheeled walker. Pt. took a shower and required assistance in dressing. She reports incontinence and uses an adult pull on brief. She ate all her meals in the community room with cohorts, but was not observed socializing with others. Pt. remained OOB most of the shift, watching tv, and participated in all snacks. Pt. is pleasant, and made no delusional statements. Plan: Patients Gourmet Coffee Attendant, Odalys Mercedes she is agreeable to go to a Board & Care, and was informed she might need to undergo an interview.
[2022-05-01] MEDS: traZODone 50mg tablet PO SCH (19:43)
[2022-05-01 20:00] VITALS: BP 117/58
--- NOTE | 2022-05-02 05:25 | NUR ---
Nursing Progress Note: Problem: 71-year-old female admitted to [place] for Behavioral Health on a 5150 at 2157 for depression and grave disability. Is unable to take medications correctly and unable to provide food and snf. Interventions: Medication administration, 1:1 MH assessment, maintained a safe and supportive environment, provided clear and simple instructions, provided encouragement regarding performance of ADLs, monitored behaviors and maintained clear boundaries, maintained Q15 minute safety checks. Response: Upon arrival to shift noted patient resting in bed. Pleasant and cooperative. Up with FWW as needed. Is trying to be more independent with walking. Slow steady shuffling gait with FWW. Denies SI, HI, AH, VH. Thoughts linear and speech clear. Compliant with HS meds. No PRNs given. Slept well. Will continue to monitor. Plan: Patients Family Psychologist, Odalys Mercedes she is agreeable to go to a Board & Care, and was informed she might need to undergo an interview.
[2022-05-02] MEDS: duloxetine 30mg CAPSULE.DR PO SCH (07:39)
[2022-05-02] MEDS: gabapentin 300mg capsule PO SCH ×2 (07:39→20:31)
[2022-05-02] MEDS: buPROPion SR 150mg tablet PO SCH (07:40)
[2022-05-02] MEDS: metFORMIN 500mg tablet PO SCH ×2 (07:40→20:32)
[2022-05-02] MEDS: busPIRone 5mg tablet PO SCH ×2 (07:40→20:32)
[2022-05-02 08:00] VITALS: BP 100/76
[2022-05-02 08:56] VITALS: BP 132/63
[2022-05-02] MEDS: losartan 25mg tablet PO SCH (09:04)
[2022-05-02] MEDS: HALLS - SOOTHE MENTHOL 1.8 MG cough drop LOZENGE MM PRN (10:47)
--- NOTE | 2022-05-02 11:08 | NUR ---
Spoke to immigration case manager, Odalys Mercedes (ph# [phone]) to follow up on placement at [facility]. She reported she is still trying to get in contact with the facility. She will keep script writer apprised. JARET Tabares
--- NOTE | 2022-05-02 15:27 | NUR ---
Called [facility] (# [phone]) to try to set up an interview. Was informed to call back tomorrow AM and speak with labor arbitrator, Marie Salazar. JARET Tabares
--- NOTE | 2022-05-02 17:12 | NUR ---
Nursing Progress Note: Marcelle Problem: 71-year-old female admitted to [place] for [facility] on a 5150 at 2157 for depression and grave disability. Is unable to take medications correctly and unable to provide food and senior living. Interventions: Medication administration, 1:1 MH assessment, maintained a safe and supportive environment, provided clear and simple instructions, provided encouragement regarding performance of ADLs, monitored behaviors and maintained clear boundaries, maintained Q15 minute safety checks. Response: Patient is alert and oriented. Very pleasant and cooperative. Patient was accepting of scheduled medication and accucheck this morning. She has been up for all meals in the dining area and was happy to attend todays meeting. She utilizes a FWW with a stable, shuffling gate. Patient has spent most of her time with roommate watching TV in the social room. Patient had a shower this shift. When inquired about delusional thoughts, patient reported I used to see rocks with moving faces on them, I couldnt hear anything but I could see. That was when I wasnt taking any medication, but since I have been taking it, I havent had any delusions. Patient denies feeling depressed and SI. Plan: Patients Gallery Intern, Odalys Mercedes she is agreeable to go to a Board & Care, and was informed she might need to undergo an interview.
[2022-05-02 20:00] VITALS: BP 121/63
[2022-05-02] MEDS: traZODone 50mg tablet PO SCH (20:32)
--- NOTE | 2022-05-03 04:28 | NUR ---
Nursing Progress Note: Marcelle Problem: 71-year-old female admitted to [place] for Behavioral Health on a 5150 at 2157 for depression and grave disability. Is unable to take medications correctly and unable to provide food and skilled nursing. Interventions: Medication administration, 1:1 MH assessment, maintained a safe and supportive environment, provided clear and simple instructions, provided encouragement regarding performance of ADLs, monitored behaviors and maintained clear boundaries, maintained Q15 minute safety checks. Response: Patient was found sitting on edge of bed talking with roommate. Patient stayed in her room all shift socializing with her roommate. Patient needed assistance taking night medications but eventually took them and went to bed. Patient spent little time talking to anyone other then roommate. Plan: Patients Grant Specialist, Odalys Mercedes she is agreeable to go to a Board & Care, and was informed she might need to undergo an interview.
[2022-05-03 07:00] VITALS: BP 129/71
[2022-05-03] MEDS: buPROPion SR 150mg tablet PO SCH (07:02)
[2022-05-03] MEDS: metFORMIN 500mg tablet PO SCH ×2 (07:02→20:18)
[2022-05-03] MEDS: duloxetine 30mg CAPSULE.DR PO SCH (07:02)
[2022-05-03] MEDS: busPIRone 5mg tablet PO SCH ×2 (07:02→20:18)
[2022-05-03] MEDS: gabapentin 300mg capsule PO SCH ×2 (07:02→20:18)
[2022-05-03] MEDS: losartan 25mg tablet PO SCH (07:11)
--- NOTE | 2022-05-03 12:52 | NUR ---
Spoke to Marie Salazar at [facility] (ph# [phone]) regarding potential placement. She reported she does have a female bed open. She expressed concern regarding a potential cancer diagnosis and Marcelle needing a higher level of care. Left message for sample case porter, Odalys Mercedes, and requested she call Marie. Informed Odalys that Marcelle is at baseline and we need to figure out an alternate plan if Marcelle cannot go to [facility]. JARET Tabares
[2022-05-03] MEDS: HALLS - SOOTHE MENTHOL 1.8 MG cough drop LOZENGE MM PRN (15:54)
--- NOTE | 2022-05-03 17:30 | NUR ---
Nursing Progress Note: Marcelle Problem: 71-year-old female admitted to [place] for [facility] on a 5150 at 2157 for depression and grave disability. Is unable to take medications correctly and unable to provide food and usp. Interventions: Medication administration, 1:1 MH assessment, maintained a safe and supportive environment, provided clear and simple instructions, provided encouragement regarding performance of ADLs, monitored behaviors and maintained clear boundaries, maintained Q15 minute safety checks. Response: Patient was found sitting on edge of bed talking with roommate this AM shift. Patient actively participated in breakfast, lunch and all snacks. pt also ambulated to community room to watch tv with roommate. Pt requested cough drop for sore throat. No cough heard by primary rn. Plan: [facility] when room available Will continue to assist patient as needed.
[2022-05-03 19:00] VITALS: BP 123/69
[2022-05-03] MEDS: traZODone 50mg tablet PO SCH (20:18)
--- NOTE | 2022-05-04 04:51 | NUR ---
Nursing Progress Note: Marcelle Problem: 71-year-old female admitted to [place] for [facility] on a 5150 at 2157 for depression and grave disability. Is unable to take medications correctly and unable to provide food and halfway. Interventions: Medication administration, 1:1 MH assessment, maintained a safe and supportive environment, provided clear and simple instructions, provided encouragement regarding performance of ADLs, monitored behaviors and maintained clear boundaries, maintained Q15 minute safety checks. Response: Patient was found walking around unit at beginning of shift. Patient retuned to room. Patient stayed in room for rest of shift socializing with roommate. Patient took night medications without issue. Patient refused to participate in snack time and went to bed after medications. Plan: [facility] when room available Will continue to assist patient as needed.
[2022-05-04 07:00] VITALS: BP 110/65
[2022-05-04] MEDS: busPIRone 5mg tablet PO SCH (07:58)
[2022-05-04] MEDS: duloxetine 30mg CAPSULE.DR PO SCH (07:58)
[2022-05-04] MEDS: buPROPion SR 150mg tablet PO SCH (07:58)
[2022-05-04] MEDS: losartan 25mg tablet PO SCH (08:02)
[2022-05-04] MEDS: gabapentin 300mg capsule PO SCH ×2 (08:02→20:56)
[2022-05-04] MEDS: metFORMIN 500mg tablet PO SCH ×2 (08:02→20:55)
--- NOTE | 2022-05-04 18:04 | NUR ---
Nursing Progress Note: Marcelle Problem: 71-year-old female admitted to [place] for [facility] on a 5150 at 2157 for depression and grave disability. Is unable to take medications correctly and unable to provide food and chcf. Interventions: Medication administration, 1:1 MH assessment, maintained a safe and supportive environment, provided clear and simple instructions, provided encouragement regarding performance of ADLs, monitored behaviors and maintained clear boundaries, maintained Q15 minute safety checks. Response: Patient awoke for breakfast and sits with her peers ad socializes minimally. Patient states that she is not suicidal and that she took some extra pills at home, but this was not a suicide attempt. She states that she fell and hit her head and called the ambulance and was brought here. Patient denies A/V/H. She states that she is having some roommate troubles. Patient is medication compliant. Plan: [facility] when room available Will continue to assist patient as needed.
[2022-05-04 20:00] VITALS: BP 121/58
[2022-05-04] MEDS: busPIRone 15mg tablet PO SCH (20:55)
[2022-05-04] MEDS: traZODone 50mg tablet PO SCH (20:55)
--- NOTE | 2022-05-05 02:20 | NUR ---
Nursing Progress Note: Problem: 71-year-old female admitted to [place] for Behavioral Health on a 5150 at 2157 for depression and grave disability. Is unable to take medications correctly and unable to provide food and nursing home. Interventions: Medication administration, 1:1 MH assessment, maintained a safe and supportive environment, provided clear and simple instructions, provided encouragement regarding performance of ADLs, monitored behaviors and maintained clear boundaries, maintained Q15 minute safety checks. Response: Patient isolates in her room following shift change. She is polite, well oriented, she is cooperative. Patient is polite and medication compliant. No S/I, H/I, or any hallucinations. Plan: [facility] when room available Will continue to assist patient as needed.
[2022-05-05 07:00] VITALS: BP 128/78
[2022-05-05] MEDS: buPROPion SR 150mg tablet PO SCH (09:08)
[2022-05-05] MEDS: gabapentin 300mg capsule PO SCH ×2 (09:08→19:24)
[2022-05-05] MEDS: duloxetine 30mg CAPSULE.DR PO SCH (09:08)
[2022-05-05] MEDS: losartan 25mg tablet PO SCH (09:09)
[2022-05-05] MEDS: metFORMIN 500mg tablet PO SCH ×2 (09:09→19:24)
[2022-05-05] MEDS: busPIRone 15mg tablet PO SCH ×2 (09:09→19:24)
[2022-05-05] MEDS: hydrOXYzine 25 MG tablet PO PRN (10:22)
--- NOTE | 2022-05-05 17:52 | NUR ---
Nursing Progress Note: Marcelle Problem: 71-year-old female admitted to [place] for [facility] on a 5150 at 2157 for depression and grave disability. Is unable to take medications correctly and unable to provide food and [facility]. Interventions: Medication administration, 1:1 MH assessment, maintained a safe and supportive environment, provided clear and simple instructions, provided encouragement regarding performance of ADLs, monitored behaviors and maintained clear boundaries, maintained Q15 minute safety checks. Response: Patient awakened and went to the group room for breakfast. Patient ambulates with FWW and moves very slowly and speaks slowly as well. Patient was observed crying this morning twice, patient doesn't really know what is wrong. All that she can think is that she misses her roommate. She said that she attempted to call him yesterday, but he did not answer. Administered Atarax with good effect. Patient is medication compliant, pleasant and cooperative with treatment. Plan: [facility] when room available Will continue to assist patient as needed.
--- NOTE | 2022-05-05 18:23 | NUR ---
Nursing Progress Note: Marcelle Problem: 71-year-old female admitted to [place] for [facility] on a 5150 at 2157 for depression and grave disability. Is unable to take medications correctly and unable to provide food and intermediate. Interventions: Medication administration, 1:1 MH assessment, maintained a safe and supportive environment, provided clear and simple instructions, provided encouragement regarding performance of ADLs, monitored behaviors and maintained clear boundaries, maintained Q15 minute safety checks. Response: Patient awakens early and attends breakfast in the group room utilizing a FWW. Patient ambulates slowly and speaks slowly as well. Patient was observed by staff crying on two occasions today. Patient does not know why she is crying, she just feels sad. She thinks it may be because she misses her roommate. She stated that she attempted to call him yesterday and he did not sweet pickle maker the phone. Atarax given with good relief of symptoms. Patient is pleasant and cooperative. Medication compliant. Plan: [facility] when room available Will continue to assist patient as needed.
[2022-05-05] MEDS: traZODone 50mg tablet PO SCH (19:24)
[2022-05-05 20:00] VITALS: BP 115/61
--- NOTE | 2022-05-06 05:35 | NUR ---
Nursing Progress Note Problem: 71-year-old female admitted to [place] for Behavioral Health on a 5150 at 2157 for depression and grave disability. Is unable to take medications correctly and unable to provide food and custodial. Interventions: Medication administration, 1:1 MH assessment, maintained a safe and supportive environment, provided clear and simple instructions, provided encouragement regarding performance of ADLs, monitored behaviors and maintained clear boundaries, maintained Q15 minute safety checks. Response: Pt is found in bed awake, getting her vital signs taken. Pt. appears to be in a good mood. She talked about being sad today and thinks it might be she is missing her roommate. I want to go home but my SW said Im going to a B&C now. Pt denies being depressed, denies SI/HI/AVH. I came in because I fell in my house and my SW thought it could be my medication. Encourage pt. to socialize more. Pt seems happy to just be around her roommate. Pt is medication compliant and educated on importance of taking her medications as ordered. Monitor for safety every 15 minutes. Plan: [facility] when room available. Will continue to assist patient as needed.
[2022-05-06] MEDS: busPIRone 15mg tablet PO SCH ×2 (07:52→20:46)
[2022-05-06] MEDS: metFORMIN 500mg tablet PO SCH ×2 (07:52→20:46)
[2022-05-06] MEDS: buPROPion SR 150mg tablet PO SCH (07:52)
[2022-05-06] MEDS: gabapentin 300mg capsule PO SCH ×2 (07:52→20:46)
[2022-05-06] MEDS: losartan 25mg tablet PO SCH (07:52)
[2022-05-06] MEDS: duloxetine 30mg CAPSULE.DR PO SCH (07:53)
[2022-05-06 08:00] VITALS: BP 138/60
--- NOTE | 2022-05-06 14:05 | NUR ---
Left message for case liner, Odalys Mercedes (ph# [phone]) to follow up on placement at [facility]. Requested a call back. JARET Tabares
--- NOTE | 2022-05-06 18:08 | NUR ---
Nursing Progress Note: Marcelle Problem: 71-year-old female admitted to [place] for Behavioral Health on a 5150 for depression and grave disability. Is unable to take medications correctly and unable to provide food and longterm. Interventions: 1:1 assessment, maintained a safe and supportive environment, contract for safety, provided clear and simple instructions, therapeutic conversation, medication administration/education/monitoring, and maintained Q15 minute safety checks. Response: Patient received sleeping in her room at shift change. She was awoke to join for breakfast in the group room. Patient endorsed to this bond underwriter that she is doing good and has been sleeping well. She was receptive to 1:1 assessment and scheduled medication. Patient is A&Ox3, not to event. Pt endorsed to this bond underwriter that she was admitted to the hospital after losing her balance at home. She was observed sitting in the group room socializing with another peer later in the morning. Pt endorsed plans to go to a board and care. She was observed napping on and off throughout the shift. Pt joined for all meal and snack times in the group room with peers. She was pleasant and cooperative with care throughout the shift. Plan: Continue hospitalization for further stabilization and treatment. D/C to [facility] when room becomes available.
[2022-05-06 20:00] VITALS: BP 127/54
[2022-05-06] MEDS: traZODone 50mg tablet PO SCH (20:46)
[2022-05-06] MEDS: HALLS - SOOTHE MENTHOL 1.8 MG cough drop LOZENGE MM PRN (20:46)
--- NOTE | 2022-05-07 00:25 | NUR ---
Nursing Progress Note Problem: 71-year-old female admitted to [place] for Behavioral Health on a 5150 at 2157 for depression and grave disability. Is unable to take medications correctly and unable to provide food and care home. Interventions: Medication administration, 1:1 MH assessment, maintained a safe and supportive environment, provided clear and simple instructions, provided encouragement regarding performance of ADLs, monitored behaviors and maintained clear boundaries, maintained Q15 minute safety checks. Response: Pt took all medications after being told what they were without incident. Nicely asked for cough drop which was given and was thankful for. Pt denies being depressed, denies SI/HI/AVH. Pt seems happy to just be around her roommate. Plan: [facility] when room available. Will continue to assist patient as needed.
[2022-05-07 08:00] VITALS: BP 122/65
[2022-05-07] MEDS: gabapentin 300mg capsule PO SCH ×2 (08:22→20:29)
[2022-05-07] MEDS: duloxetine 30mg CAPSULE.DR PO SCH (08:22)
[2022-05-07] MEDS: busPIRone 15mg tablet PO SCH ×2 (08:22→20:29)
[2022-05-07] MEDS: metFORMIN 500mg tablet PO SCH ×2 (08:22→20:29)
[2022-05-07] MEDS: buPROPion SR 150mg tablet PO SCH (08:23)
[2022-05-07] MEDS: losartan 25mg tablet PO SCH (08:23)
--- NOTE | 2022-05-07 11:38 | NUR ---
[facility] 05/08/22 AT 11 AM Marie with [facility] is going to come onto the unit to interview Marcelle for placement. Informed case picker, Odalys Mercedes (ph# [phone]), that Marcelle is close to ready for discharge and will have to discharge home if [facility] does not work out. JARET Tabares
[2022-05-07 16:06] LABS: OCCULT BLOOD STOOL NEGATIVE (Neg)
--- NOTE | 2022-05-07 18:03 | NUR ---
Nursing Progress Note: Marcelle Problem: 71-year-old female admitted to [place] for Behavioral Health on a 5150 for depression and grave disability. Is unable to take medications correctly and unable to provide food and nursing home. Interventions: 1:1 assessment, maintained a safe and supportive environment, contract for safety, provided clear and simple instructions, therapeutic conversation, medication administration/education/monitoring, and maintained Q15 minute safety checks. Response: Patient received sleeping in bed at change of shift. She awoke and was receptive to scheduled medication and 1:1 assessment. Patient asked this bid writer if she had been accepted to a board and care yet. Pt also endorsing that she is feeling fine today. She joined for breakfast in the group room with peers. Patient denies all MH symptoms. Does not appear to be responding to internal stimuli. She joined in group therapy today, noted engaging and interacting appropriately with other peers. Pt napped intermittently throughout the shift. She was observed socializing with peers in the group room while eating snack and watching television. Pt joined for all meal and snack times with peers today. Plan: Continue hospitalization for further stabilization and treatment. D/C to [facility] when room becomes available.
[2022-05-07 20:00] VITALS: BP 127/72
[2022-05-07] MEDS: traZODone 50mg tablet PO SCH (20:29)
[2022-05-07] MEDS: HALLS - SOOTHE MENTHOL 1.8 MG cough drop LOZENGE MM PRN (20:29)
--- NOTE | 2022-05-08 00:12 | NUR ---
Nursing Progress Note Problem: 71-year-old female admitted to [place] for Behavioral Health on a 5150 at 2157 for depression and grave disability. Is unable to take medications correctly and unable to provide food and fdc. Interventions: Medication administration, 1:1 MH assessment, maintained a safe and supportive environment, provided clear and simple instructions, provided encouragement regarding performance of ADLs, monitored behaviors and maintained clear boundaries, maintained Q15 minute safety checks. Response: When asked before med pass if there was anything I could get her she again like last night mentioned her cough drop. Pt took all medications without any problems. Pt denies being depressed, denies SI/HI/AVH. Plan: [facility] when room available. Will continue to assist patient as needed.
[2022-05-08] MEDS: HALLS - SOOTHE MENTHOL 1.8 MG cough drop LOZENGE MM PRN ×2 (03:59→12:16)
[2022-05-08] MEDS: metFORMIN 500mg tablet PO SCH ×2 (07:46→20:42)
[2022-05-08] MEDS: duloxetine 30mg CAPSULE.DR PO SCH (07:46)
[2022-05-08] MEDS: busPIRone 15mg tablet PO SCH ×2 (07:46→20:43)
[2022-05-08] MEDS: buPROPion SR 150mg tablet PO SCH (07:46)
[2022-05-08] MEDS: gabapentin 300mg capsule PO SCH ×2 (07:46→20:42)
[2022-05-08] MEDS: losartan 25mg tablet PO SCH (07:46)
[2022-05-08 08:00] VITALS: BP 118/65
--- NOTE | 2022-05-08 13:43 | NUR ---
Nursing Progress Note: Problem: 71-year-old female admitted to [place] for Behavioral Health on a 5150 for depression and grave disability. Is unable to take medications correctly and unable to provide food and correction. Interventions: 1:1 assessment, maintained a safe and supportive environment, provided clear and simple instructions, therapeutic conversation, active listening, medication administration/education/monitoring, fall prevention, provided distraction, direction, positive reinforcement, and maintained Q15 minute safety checks. Response: Pt was up for breakfast and cooperative with medications. Pt reports that she felt sad last night, she doesn't know why, but feels better this morning. Pt showered today. Pt requested a [employer] cough drop before lunch. Pt has a new order for a pelvic ultrasound. Pt has an interview scheduled for tomorrow with [facility] at 1100. Plan: Continue hospitalization for further stabilization and treatment. D/C to [facility] when room becomes available. Addendum: 05/08/22 at 1700 by Antionette Cerna RN (Lee) Pelvic ultrasound was done, results pending.
[2022-05-08 19:00] VITALS: BP 143/85
[2022-05-08] MEDS: traZODone 50mg tablet PO SCH (20:43)
--- NOTE | 2022-05-09 04:37 | NUR ---
Nursing Progress Note: Problem: 71-year-old female admitted to [place] for Behavioral Health on a 5150 for depression and grave disability. Is unable to take medications correctly and unable to provide food and chcf. Interventions: 1:1 assessment, maintained a safe and supportive environment, provided clear and simple instructions, therapeutic conversation, active listening, medication administration/education/monitoring, fall prevention, provided distraction, direction, positive reinforcement, and maintained Q15 minute safety checks. Response: Patient was found sleeping at change of shift. Patient continued to sleep until nurse came in to give night medications. Patient had to be assisted when moving to edge of bed. Patient struggled with getting all medications down. After medications were taken patient retuned to sleep. Plan: Continue hospitalization for further stabilization and treatment. D/C to [facility] when room becomes available.
[2022-05-09 07:37] VITALS: BP 125/56
--- NOTE | 2022-05-09 07:59 | NUR ---
F/u 05/09: Pt PO 100% avg regular diet w/ occasional snacks meeting estimated needs. Last Glu check 98mg/dl 05/04 on metformin per EMR. No nutrition interventions at this time. Will continue to follow. Rec: 1. continue regular diet; carb controlled diet not indicated given A1C 6.1% receiving twice the metformin frequency than home dose per EMR 2. bowel care per rx 3. weekly wt Addendum: 05/09/22 at [address] Amended: Links added.
[2022-05-09] MEDS: metFORMIN 500mg tablet PO SCH (08:38)
[2022-05-09] MEDS: buPROPion SR 150mg tablet PO SCH (08:38)
[2022-05-09] MEDS: gabapentin 300mg capsule PO SCH ×2 (08:38→20:01)
[2022-05-09] MEDS: duloxetine 30mg CAPSULE.DR PO SCH (08:38)
[2022-05-09] MEDS: busPIRone 15mg tablet PO SCH ×2 (08:38→20:02)
[2022-05-09] MEDS: losartan 25mg tablet PO SCH (08:39)
[2022-05-09] MEDS ORDERED: iohexol 300mg/ml 100ml inj. ONE (15:23)
[2022-05-09] MEDS: MESSAGE TO NURSING PO NR (15:35)
--- NOTE | 2022-05-09 17:27 | NUR ---
Nursing Progress Note: Marcelle Problem: 71-year-old female admitted to [place] for Behavioral Health on a 5150 for depression and grave disability. Is unable to take medications correctly and unable to provide food and jail. Interventions: 1:1 assessment, maintained a safe and supportive environment, provided clear and simple instructions, therapeutic conversation, active listening, medication administration/education/monitoring, fall prevention, provided distraction, direction, positive reinforcement, and maintained Q15 minute safety checks. Response: Received Pt in bed sleeping w/o distress at the beginning of this shift. Pt cooperative with vitals and returned to sleep. Pt up for breakfast and ate meals well. She took AM meds w/o issue and was pleasant and smiling throughout the day. Pt was interviewed by [facility] for possible placement and Pt is pleased with that potential discharge plan. Pt continues to ambulate well with FWW. Pt denies SI/HI. Pt had abdominal CT with contrast in afternoon. Plan: Continue hospitalization for further stabilization and treatment. [facility] to [facility] when room becomes available.
[2022-05-09 19:00] VITALS: BP 121/70
[2022-05-09] MEDS: traZODone 50mg tablet PO SCH (20:01)
--- NOTE | 2022-05-10 05:05 | NUR ---
Nursing Progress Note: Marcelle Problem: 71-year-old female admitted to [place] for Behavioral Health on a 5150 for depression and grave disability. Is unable to take medications correctly and unable to provide food and long term. Interventions: 1:1 assessment, maintained a safe and supportive environment, provided clear and simple instructions, therapeutic conversation, active listening, medication administration/education/monitoring, fall prevention, provided distraction, direction, positive reinforcement, and maintained Q15 minute safety checks. Response: Patient was found sleeping at beginning of shift. Patient continued to sleep until getting up for snack. Patient required assistance getting up but was able to make it to community room with aid of walker. Patient participated in snack and took all night medications after being reminded again what was in the cup. Patient had to be helped out of community room but was then able to make it back to her bed. Plan: Continue hospitalization for further stabilization and treatment. D/C to [facility] when room becomes available.
[2022-05-10] MEDS: buPROPion SR 150mg tablet PO SCH (07:40)
[2022-05-10] MEDS: duloxetine 30mg CAPSULE.DR PO SCH (07:41)
[2022-05-10] MEDS: gabapentin 300mg capsule PO SCH ×2 (07:41→20:56)
[2022-05-10] MEDS: busPIRone 15mg tablet PO SCH ×2 (07:41→20:56)
[2022-05-10] MEDS: losartan 25mg tablet PO SCH (07:41)
[2022-05-10 08:00] VITALS: BP 120/67
[2022-05-10] MEDS: MESSAGE TO NURSING PO NR (10:00)
--- NOTE | 2022-05-10 13:46 | NUR ---
DISCHARGE PLAN Marcelle has been accepted at [facility]. Plan is for her to go early next week per rn case management, Odalys Mercedes (ph# [phone]). JARET Tabares
[2022-05-10] MEDS ORDERED: TRAZ-251 PO (13:54)
[2022-05-10] MEDS ORDERED: BUPR-317 PO (13:54)
[2022-05-10] MEDS ORDERED: DULO60CA65 PO (13:54)
[2022-05-10] MEDS ORDERED: LOSA25TA96 PO (13:54)
[2022-05-10] MEDS ORDERED: BUS15T PO (13:54)
[2022-05-10] MEDS ORDERED: METF-1203 PO (13:54)
[2022-05-10] MEDS ORDERED: GABA300C PO (13:54)
[2022-05-10] MEDS ORDERED: HYDR-3927 PO (13:54)
--- NOTE | 2022-05-10 15:36 | NUR ---
Nursing Progress Note: Marcelle Problem: 71-year-old female admitted to [place] for Behavioral Health on a 5150 for depression and grave disability. Is unable to take medications correctly and unable to provide food and senior care. Interventions: 1:1 assessment, maintained a safe and supportive environment, provided clear and simple instructions, therapeutic conversation, active listening, medication administration/education/monitoring, fall prevention, provided distraction, direction, positive reinforcement, and maintained Q15 minute safety checks. Response: Patient was found sleeping at beginning of shift. Patient had to be assisted up when going to breakfast. Patient was playful and laughing with staff. Patient participated in breakfast and retuned to bed. Patient took al medication without difficulty. Patient was upset when roommate left but was redirected with lunch. Patient asked about results to her CT scan. Patient is waiting for P.A to explain results. Plan: Continue hospitalization for further stabilization and treatment. D/C to [facility] when room becomes available.
[2022-05-10 20:00] VITALS: BP 124/57
[2022-05-10] MEDS: traZODone 50mg tablet PO SCH (20:57)
--- NOTE | 2022-05-11 01:12 | NUR ---
Nursing Progress Note: Marcelle Problem: 71-year-old female admitted to [place] for Behavioral Health on a 5150 for depression and grave disability. Is unable to take medications correctly and unable to provide food and chcf. Interventions: 1:1 assessment, maintained a safe and supportive environment, provided clear and simple instructions, therapeutic conversation, active listening, medication administration/education/monitoring, fall prevention, provided distraction, direction, positive reinforcement, and maintained Q15 minute safety checks. Response: Patient sitting on the side of her bed at change of shift. She is pleasant , soft spoken and cooperative. Denies SI/HI, AH/VH. Pt. states when she was at home she would see smiling faces on the rocks. Pt. participated in evening snack and returned to room afterwards. Compliant with evening medications. Observed and appears to be sleeping. Plan: Continue hospitalization for further stabilization and treatment. D/C to [facility] when room becomes available.
[2022-05-11] MEDS: duloxetine 30mg CAPSULE.DR PO SCH (07:57)
[2022-05-11] MEDS: busPIRone 15mg tablet PO SCH ×2 (07:57→20:27)
[2022-05-11] MEDS: gabapentin 300mg capsule PO SCH ×2 (07:57→20:27)
[2022-05-11] MEDS: buPROPion SR 150mg tablet PO SCH (07:57)
[2022-05-11] MEDS: losartan 25mg tablet PO SCH (07:58)
[2022-05-11 08:00] VITALS: BP 124/65
[2022-05-11] MEDS: MESSAGE TO NURSING PO NR (10:00)
--- NOTE | 2022-05-11 13:20 | NUR ---
Nursing Progress Note: Problem : 71-year-old female admitted to [place] for [facility] on a 5150 for depression and grave disability. Is unable to take medications correctly and unable to provide food and half-way. Interventions : Introduced self and established rapport, maintained a safe and supportive environment, ensured contract for safety, provided clear and simple instructions, monitored blood sugars as ordered, provided encouragement to complete ADLs, maintained fall precautions, and maintained Q 15min safety checks. Response : Received pt. sleeping in bed at the beginning of the shift, she awoke early and attended breakfast in the Group Room. Pt's blood sugar continues to be monitored per orders and is WNL. Pt. continues to ambulate with use of her FWW with a steady gait, and fall precautions remain in place. 1:1 was completed at bedside, pt. presents as cooperative and pleasant. She denies any S/I, H/I, A/V/KHAN, and no delusional statements were made. Pt. is expressing the desire to discharge and she was provided education by this poem writer that per [facility] Munoz she will be leaving on Friday, she reported contentment. Pt. remained up throughout much of the shift, interacting appropriately with her peers and staff. She was able to shower independently with encouragement from staff. This poem writer discussed the results of pt's recent abnormal abdominal and pelvis CT with [facility] Munoz. Per [facility] Munoz pt. will need to follow-up with her sales solutions representative upon discharge. This was explained to the pt. who reports she sees a sales solutions representative at [facility] whom she plans to follow-up with. Plan : Pt. continues to require a safe and supportive environment, per [facility]AMA Munoz she will discharge on Friday to [facility].
[2022-05-11 20:00] VITALS: BP 123/80
[2022-05-11] MEDS: traZODone 50mg tablet PO SCH (20:27)
[2022-05-12] MEDS: hydrOXYzine 25 MG tablet PO PRN (02:10)
--- NOTE | 2022-05-12 02:41 | NUR ---
Nursing Progress Note: Problem : 71-year-old female admitted to [place] for Behavioral Health on a 5150 for depression and grave disability. Is unable to take medications correctly and unable to provide food and long-term. Interventions : Introduced self and established rapport, maintained a safe and supportive environment, ensured contract for safety, provided clear and simple instructions, attempted to orient to reality, monitored blood sugars as ordered, provided encouragement to complete ADLs, maintained fall precautions, and maintained Q 15min safety checks. Response : Received pt. up eating dinner in the Group Room at the beginning of the shift, she was observed to be interacting appropriately with her peers. Later, before HS snack, pt's blood sugar was obtained and was elevated. However, it was noted that pt. had, had pizza for an afternoon snack before dinner, and these extra carbohydrates are likely affecting her sugars. Pt. continues to ambulate with the use of her FWW with a steady gait, and fall precautions remain in place. 1:1 was completed at bedside, and pt. continues to deny all mental health s/s and is looking forward to her upcoming discharge. However, pt. then makes what appears to be possible paranoid delusional statements regarding her belief that her peers may be talking negatively about her. Pt. states, "They say I am paranoid and need to fix my attitude." This keno writer/runner provided positive encouragement to pt. and attempted to orient her to reality with effectiveness. Pt. retreated to bed after attending snack in the Group Room, and appears to be sleeping well. Plan : Pt. continues to require a safe and supportive environment, per [facility] Munoz she will discharge on Friday to [facility].
[2022-05-12 08:00] VITALS: BP 129/59
[2022-05-12] MEDS: busPIRone 15mg tablet PO SCH ×2 (08:17→20:05)
[2022-05-12] MEDS: losartan 25mg tablet PO SCH (08:17)
[2022-05-12] MEDS: buPROPion SR 150mg tablet PO SCH (08:17)
[2022-05-12] MEDS: gabapentin 300mg capsule PO SCH ×2 (08:17→20:06)
[2022-05-12] MEDS: duloxetine 30mg CAPSULE.DR PO SCH (08:17)
[2022-05-12] MEDS: MESSAGE TO NURSING PO NR (10:13)
--- NOTE | 2022-05-12 17:59 | NUR ---
Nursing Progress Note: Marcelle Problem : 71-year-old female admitted to [place] for [facility] on a 5150 for depression and grave disability. Is unable to take medications correctly and unable to provide food and usp. Interventions : Provided 1:1 assessment, maintained a safe and supportive environment, ensured contract for safety, provided clear and simple instructions, monitored blood sugars as ordered, provided encouragement to complete ADLs, maintained fall precautions, and maintained Q 15min safety checks. Response : Patient received sleeping in bed at shift change. She awoke and joined for breakfast in the group room with peers. She is noted to be social, pleasant, and cooperative with care. Pt's blood sugar continues to be monitored per orders and is WNL. She continues to ambulate with use of her FWW with a steady gait, and fall precautions remain in place. She was receptive to scheduled medication and 1:1 assessment. Patient denies all MH symptoms. Does not appear to be responding to internal stimuli. She noted engaging and interacting appropriately with other peers on the unit today. Pt noted asking about discharge plans and appears hopeful to leave this facility soon. She napped intermittently throughout the shift and joined for all meal and snack times with peers. Plan : Pt. continues to require a safe and supportive environment, per [facility] Munoz she will discharge on Friday to [facility].
[2022-05-12 19:13] VITALS: BP 117/82
[2022-05-12] MEDS: metFORMIN 500mg tablet PO SCH (20:05)
[2022-05-12] MEDS: traZODone 50mg tablet PO SCH (20:06)
--- NOTE | 2022-05-12 20:57 | NUR ---
Nursing Progress Note: Marcelle Problem : 71-year-old female admitted to [place] for Behavioral Health on a 5150 for depression and grave disability. Is unable to take medications correctly and unable to provide food and penitentiary. Interventions : Provided 1:1 assessment, maintained a safe and supportive environment, ensured contract for safety, provided clear and simple instructions, monitored blood sugars as ordered, provided encouragement to complete ADLs, maintained fall precautions, and maintained Q 15min safety checks. Response : Pt was ambulating in the hallway at change of shift using FWW. Pt is pleasant, cooperative, and appears to be socializing appropriately with peers. Pt states she is hoping to be going to [facility]. Pt denies a/vh and does not appear to be RIS. Pt went to bed and declined to have snacks with peers. Pt took HS meds before going to bed. Plan : Pt. continues to require a safe and supportive environment, per [facility] Munoz [facility]
[2022-05-13] MEDS: busPIRone 15mg tablet PO SCH ×2 (07:46→20:00)
[2022-05-13] MEDS: duloxetine 30mg CAPSULE.DR PO SCH (07:46)
[2022-05-13] MEDS: gabapentin 300mg capsule PO SCH ×2 (07:46→20:00)
[2022-05-13] MEDS: buPROPion SR 150mg tablet PO SCH (07:46)
[2022-05-13] MEDS: losartan 25mg tablet PO SCH (07:46)
[2022-05-13] MEDS: metFORMIN 500mg tablet PO SCH ×2 (07:46→20:00)
[2022-05-13 08:00] VITALS: BP 132/75
--- NOTE | 2022-05-13 17:59 | NUR ---
Nursing Progress Note: Marcelle Problem : 71-year-old female admitted to [facility] for [facility] on a 5150 for depression and grave disability. Is unable to take medications correctly and unable to provide food and care home. Interventions : Provided 1:1 assessment, maintained a safe and supportive environment, ensured contract for safety, provided clear and simple instructions, monitored blood sugars as ordered, provided encouragement to complete ADLs, maintained fall precautions, and maintained Q 15min safety checks. Response : Patient received sleeping in her room at change of shift. She was awoken for breakfast and was noted sitting in the group room with peers. Pt continues to ambulate with use of her FWW with a steady gait, and fall precautions remain in place. She was receptive to scheduled medication and 1:1 assessment. Pt denies SI/HI, AH or VH. Does not appear to be responding to IS. Patient was noted to be active on the unit today, socializing with peers. She continues to present as pleasant, calm, and cooperative with care. Pt noted asking about discharge plans and is looking forward to going to the [facility]. Plan : Pt. continues to require a safe and supportive environment. Per USAMA Munoz she will discharge to the [facility].
[2022-05-13 19:20] VITALS: BP 105/59
[2022-05-13] MEDS: traZODone 50mg tablet PO SCH (20:00)
--- NOTE | 2022-05-13 20:32 | NUR ---
Nursing Progress Note: Marcelle Problem : 71-year-old female admitted to [facility] on a 5150 for depression and grave disability. Is unable to take medications correctly and unable to provide food and assisted. Interventions : Provided 1:1 assessment, maintained a safe and supportive environment, ensured contract for safety, provided clear and simple instructions, monitored blood sugars as ordered, provided encouragement to complete ADLs, maintained fall precautions, and maintained Q 15min safety checks. Response : Pt was ambulating in the teran w [employer] at change of shift. Pt is tearful stating she wants to go home and doesnt want to go to [facility] because she will miss her roommate. Her roommate thinks it is too far to drive to go visit her, so she is hopeful she will be able to go back to her apartment at some point. Discussed the reasons that [facility] is a good option for her and patient understands she will get help with medications. Pt states "so it will be good for me to go, then I wont overdose when I mess up my meds." Pt states she will be able to call her roommate and she is happy about this. Pt wanted to get in bed and had her bed adjusted and was made comfortable. pt took HS meds, declined a snack and went to sleep. Plan : Pt. continues to require a safe and supportive environment. Per USAMA Munoz she will discharge to the [facility].
[2022-05-14 08:00] VITALS: BP 121/69
[2022-05-14] MEDS: buPROPion SR 150mg tablet PO SCH (08:50)
[2022-05-14] MEDS: duloxetine 30mg CAPSULE.DR PO SCH (08:51)
[2022-05-14] MEDS: gabapentin 300mg capsule PO SCH ×2 (08:51→20:13)
[2022-05-14] MEDS: busPIRone 15mg tablet PO SCH ×2 (08:51→20:13)
[2022-05-14] MEDS: losartan 25mg tablet PO SCH (08:51)
[2022-05-14] MEDS: metFORMIN 500mg tablet PO SCH ×2 (08:51→20:13)
--- NOTE | 2022-05-14 11:28 | NUR ---
Completed and sent signed Physician's Report to [facility]. JARET Tabares
--- NOTE | 2022-05-14 17:47 | NUR ---
Nursing Progress Note: Marcelle Problem : 71-year-old female admitted to [facility] for [facility] on a 5150 for depression and grave disability. Is unable to take medications correctly and unable to provide food and halfway. Interventions : Provided 1:1 assessment, maintained a safe and supportive environment, ensured contract for safety, provided clear and simple instructions, provided encouragement to complete ADLs, maintained fall precautions, and maintained Q 15min safety checks. Response : Patient received sleeping in bed at shift change with no s/s of distress. She joined for breakfast in the group room, noted socializing appropriately with peers. Pt continues to ambulate with use of her FWW with a steady gait, and fall precautions remain in place. She was noted asking this mortgage or loan underwriter about her discharge and if her medication had arrived. Pt had no complaints noted about going to the [facility]. She denies all MH symptoms. Does not appear to be responding to IS. Pt is receptive to scheduled medication and blood sugar monitoring. She was moved into a different room in order to accommodate new admits on the unit. Patient was receptive to new room and her new roommate. She was active on the unit the majority of the day, noted napping on and off for brief periods of time. Pt joined for all meal and snack times in the group room with peers. Plan : Pt. continues to require a safe and supportive environment. Per USAMA Munoz she will discharge to the [facility].
[2022-05-14 19:47] VITALS: BP 133/63
[2022-05-14] MEDS: traZODone 50mg tablet PO SCH (20:12)
--- NOTE | 2022-05-15 04:04 | NUR ---
Nursing Progress Note: Marcelle Problem : 71-year-old female admitted to [facility] for [facility] on a 5150 for depression and grave disability. Is unable to take medications correctly and unable to provide food and group home. Interventions : Provided 1:1 assessment, maintained a safe and supportive environment, ensured contract for safety, provided clear and simple instructions, provided encouragement to complete ADLs, maintained fall precautions, and maintained Q 15min safety checks. Response : Patient eating in the dining room at shift change ,she then ambulated the halls with her walker. Her mood is good, thought process continues to be linear. She spoke to her roommate on the phone for a brief time. She was unclear about when she is supposed to be discharged, but stated that she needed meds to be delivered prior to her leaving. Pt did have some vaginal bleeding this shift, but not a large amount. Plan : Pt. continues to require a safe and supportive environment. Per USAMA Munoz she will discharge to the [facility].
[2022-05-15 08:00] VITALS: BP 114/66
[2022-05-15 08:04] VITALS: BP_SYST 114
[2022-05-15] MEDS: gabapentin 300mg capsule PO SCH (08:04)
[2022-05-15] MEDS: metFORMIN 500mg tablet PO SCH (08:04)
[2022-05-15] MEDS: busPIRone 15mg tablet PO SCH (08:04)
[2022-05-15] MEDS: losartan 25mg tablet PO SCH (08:04)
[2022-05-15] MEDS: buPROPion SR 150mg tablet PO SCH (08:04)
[2022-05-15] MEDS: duloxetine 30mg CAPSULE.DR PO SCH (08:04)
--- NOTE | 2022-05-15 11:36 | NUR ---
Nursing Discharge Note: Pt discharged from [facility] at 1050 to [facility] high lift driver to take her to board and care in [place]. Pt in pleasant mood and excited about leaving and was in no acute emotional or physical distress. Pts belongings inventoried and returned to her and high lift driver. Pt has been improving since admission and did not want nicotine replacement.
[2022-05-24] MEDS ORDERED: paliperidone palmitate 156 mg/ml inj.**IM only IM SCH (08:00)
== END 2022-05-15 10:50 | disposition home or self-care (01) | DRG 885 ==
LOC: ER 14:30 → ED HOLD 04-26 17:55 → ADULT MH 04-26 21:53
PROVIDERS: ADMIT Psychiatry & Neurology Psychiatry; ATTEND Psychiatry & Neurology Psychiatry
PROC: BW211ZZ Computerized Tomography (CT Scan) of Abdomen and Pelvis using Low Osmolar Contrast (ICD-10-PCS; principal; 2022-05-09)
DX: F25.9 Schizoaffective disorder, unspecified (principal); K92.1 Melena; I10 Essential (primary) hypertension; F41.9 Anxiety disorder, unspecified; Z20.822 Contact with and (suspected) exposure to COVID-19; E11.40 Type 2 diabetes mellitus with diabetic neuropathy, unspecified; R26.9 Unspecified abnormalities of gait and mobility; F32.A Depression, unspecified; D25.9 Leiomyoma of uterus, unspecified; E78.00 Pure hypercholesterolemia, unspecified; Z79.84 Long term (current) use of oral hypoglycemic drugs; Z83.3 Family history of diabetes mellitus; Z91.018 Allergy to other foods; Z91.410 Personal history of adult physical and sexual abuse; Z88.8 Allergy status to other drugs, medicaments and biological substances; Z56.0 Unemployment, unspecified; Z79.899 Other long term (current) drug therapy; Z85.42 Personal history of malignant neoplasm of other parts of uterus
CPT/HCPCS: 36415; 70450; 71045; 74177; 76830; 76856; 80053; 80061; 80305; 80320; 81001; 82272; 82948; 83036; 84443; 85025; 87081; 87811; 99285; C2617; J3490; Q0177; Q9967

== ENCOUNTER 2022-08-15 10:34 | Outpatient (CLI) | payer BC, MEDICAID ==
[~2022-08-15 10:34] MED LIST changes: +BUPR-317 PO; +BUS15T PO; -BUSP10TA11 PO; -DULO-31 PO; +DULO60CA65 PO; +GABA300C PO; +HYDR-3927 PO; -LISI10TA27 PO; +METF-1203 PO; -METF-438 PO; -PALI117D IM; +PALI156D IM; -PALI6TAB PO; +TRAZ-251 PO; -TRAZ-256 PO; -TRIH2TAB3 PO; -invega sustenna IM
== END 2022-08-15 23:59 | disposition home or self-care (01) ==
LOC: RAD 10:34
PROVIDERS: ATTEND Nurse Practitioner Psychiatric/Mental Health
DX: Z79.899 Other long term (current) drug therapy (principal)
CPT/HCPCS: 93005

== ENCOUNTER → 2023-09-09 | Outpatient (CLI) | payer BC, MEDICAID ==
[~2023-09-09] MED LIST changes: -BUPR-317 PO; +BUPR-561 PO; +LOSA-415 PO; -LOSA25TA96 PO
== END | disposition home or self-care (01) ==
LOC: RAD 10:11
PROVIDERS: ATTEND Nurse Practitioner Psychiatric/Mental Health
DX: Z79.899 Other long term (current) drug therapy (principal)
CPT/HCPCS: 93005